=== PATIENT | female | born 1935 | race Caucasian/White ===

== ENCOUNTER 2022-09-18 15:51 | Outpatient (REF) | payer MEDICARE, OTHER, SELFPAY ==
--- NOTE | ~2022-09-18 | XR_ITS ---
EXAMINATION: XR ANKLE, RIGHT XR ANKLE, LEFT XR FOOT, RIGHT XR FOOT, LEFT CLINICAL INFORMATION: Rheumatoid arthritis, unspecified. COMPARISON: None. TECHNIQUE: AP, lateral, and mortise views of each ankle and AP, lateral, and oblique views of each foot. FINDINGS: RIGHT ANKLE: Soft tissues are swollen. No fracture or malalignment. Ankle mortise is symmetric. Joint space appears well preserved at the talocrural and subtalar joints. Small enthesopathic spurs are present at the Achilles tendon insertion and plantar fascial origin on the calcaneus. No joint effusion. No appreciable erosions. LEFT ANKLE: No fracture or malalignment. Bone mineralization is normal. Soft tissue swelling is present at the ankle. Ankle mortise is symmetric. Joint space appears well-preserved the talocrural and subtalar joints. No erosions. No joint effusion. Moderate sized enthesopathic spurs are present at the Achilles tendon insertion and plantar fascial origin on the calcaneus. 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 Bones are osteopenic. There is moderate nonuniform joint space narrowing at the 1st MTP joint with marginal osteophytes and articular cortical sclerosis, consistent with osteoarthritis. Additional moderate multifocal osteophytes is evident within the interphalangeal joints. Minimal osteophytes in the other MTP joints. Midfoot joints appear relatively well preserved. There is a 6 mm focus of calcification at the medial margin of the 1st metatarsal head which likely corresponds to hydroxyapatite deposition disease. A calcified tophus is less likely. No significant marginal or periarticular erosions are identified. 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 Moderate nonuniform cartilage loss is evident at the 1st MTP joint with articular sclerosis and marginal osteophytes. Additional moderate multifocal osteoarthritis is evident within the interphalangeal joints diffusely. Other MTP joints appear relatively well preserved as do the joints of the midfoot. No erosions are identified. Small foci of calcification are evident at the medial margin of the medial cuneiform and the medial margin of the 1st metatarsal head as can be seen with hydroxyapatite deposition disease. XR/XR ankle LT min 3V IMPRESSION: 1. No specific radiographic findings of rheumatoid arthritis in the ankles and feet. 2. Moderate multifocal osteoarthritis in the forefeet bilaterally, most notably at the 1st MTP joints. 3. 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 4. Small soft tissue calcifications at the 1st MTP joints and left 1st TMT joints are favored to correspond to hydroxyapatite deposition disease. Calcification of gouty tophi is less likely.
--- NOTE | ~2022-09-18 | XR_ITS ---
EXAMINATION: XR SHOULDER, RIGHT XR SHOULDER, LEFT CLINICAL INFORMATION: Rheumatoid arthritis, unspecified COMPARISON: None TECHNIQUE: AP external rotation, Grashey, scapular Y, and axillary views of each shoulder. FINDINGS: RIGHT SHOULDER: Marked nonuniform joint space narrowing is evident at the glenohumeral joint with articular sclerosis and large marginal osteophytes at the humeral head, most consistent with osteoarthritis. No fractures are identified. Multiple osseous loose bodies are evident in the axillary pouch and subacromial , measuring up to 1.2 cm in diameter. Mild to moderate acromioclavicular osteoarthritis. No fractures. Normal anatomic alignment. Probable 5 mm focus of chondrocalcinosis of the subscapularis tendon insertion on the lesser tuberosity and 5 mm focus at the pectoralis major insertion on the proximal humeral shaft. Soft tissues are otherwise unremarkable. LEFT SHOULDER: Marked glenohumeral joint space narrowing is associated with articular sclerosis and remodeling as well as large humeral osteophytes. A 8 mm loose body is present in the subacromial. Bones are osteopenic. Mild to moderate acromioclavicular osteoarthritis. Soft tissues are unremarkable. No acute fracture or malalignment. XR/XR shoulder LT min 2V IMPRESSION: 1. 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 2. Mild to moderate acromioclavicular osteoarthritis in both shoulders. 3. No acute osseous findings. 4. 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
--- NOTE | ~2022-09-18 | XR_ITS ---
EXAMINATION: XR SHOULDER, RIGHT XR SHOULDER, LEFT CLINICAL INFORMATION: Rheumatoid arthritis, unspecified COMPARISON: None TECHNIQUE: AP external rotation, Grashey, scapular Y, and axillary views of each shoulder. FINDINGS: RIGHT SHOULDER: Marked nonuniform joint space narrowing is evident at the glenohumeral joint with articular sclerosis and large marginal osteophytes at the humeral head, most consistent with osteoarthritis. No fractures are identified. Multiple osseous loose bodies are evident in the axillary pouch and subacromial , measuring up to 1.2 cm in diameter. Mild to moderate acromioclavicular osteoarthritis. No fractures. Normal anatomic alignment. Probable 5 mm focus of chondrocalcinosis of the subscapularis tendon insertion on the lesser tuberosity and 5 mm focus at the pectoralis major insertion on the proximal humeral shaft. Soft tissues are otherwise unremarkable. LEFT SHOULDER: Marked glenohumeral joint space narrowing is associated with articular sclerosis and remodeling as well as large humeral osteophytes. A 8 mm loose body is present in the subacromial. Bones are osteopenic. Mild to moderate acromioclavicular osteoarthritis. Soft tissues are unremarkable. No acute fracture or malalignment. XR/XR shoulder RT min 2V IMPRESSION: 1. 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 2. Mild to moderate acromioclavicular osteoarthritis in both shoulders. 3. No acute osseous findings. 4. 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
[2022-09-18 16:14] LABS: MANUAL DIFF FLAG NO
[2022-09-18 16:54] LABS: Basophils Percent Auto 0.5 % (0-2); Eosinophils Absolute Auto 0.2 X10*3/uL (0.0-0.4); Eosinophils Percent Auto 3.3 % (0-4); Hematocrit 33.4 % (37.0-47.0); Hemoglobin 10.7 g/dl (12.0-16.0); Imm Gran Abs Auto 0.01 X10*3/uL (0.00-0.03); Imm Gran Pct Auto 0.1 % (0.0-0.4); Lymphocytes Absolute Auto 2.2 X10*3/uL (1.2-4.9); Lymphocytes Percent Auto 30.3 % (20-40); Mean Corpuscular Hemoglobin 31.1 pg (27.0-33.0); Mean Corpuscular Volume 97.1 fL (80.0-98.0); Mean Platelet Volume 9.4 fL (9.4-12.3); Monocytes Absolute Auto 0.6 X10*3/uL (0.1-1.2); Monocytes Percent Auto 8.6 % (2-11); Neutrophils Absolute Auto 4.2 x10*3/uL (2.0-8.3); Neutrophils Percent Auto 57.2 % (45-73); Platelet Count 260 X10*3/uL (160-400); Red Blood Count 3.44 X10*6/uL (4.20-5.50); Red Cell Distribution Width 12.3 % (11.0-16.0); White Blood Count 7.4 X10*3/uL (4.8-10.8)
[2022-09-18 17:22] LABS: Alanine Aminotransferase 9 U/L (0-31); Albumin Level 4.2 g/dL (3.5-5.0); Alkaline Phosphatase 85 U/L (39-117); Anion Gap 15 (12-20); Aspartate Amino Transferase 16 U/L (5-31); Bilirubin Total 0.3 mg/dL (0.0-1.0); Blood Urea Nitrogen 32 mg/dL (9-16); C Reactive Protein 0.11 mg/dL (< or = 0.50); Calcium 9.3 mg/dL (8.4-10.2); Carbon Dioxide 29 mmol/L (22-29); Chloride 103 mmol/L (96-108); Estimated Glomerular Filt Rate 41; Glucose Random 93 mg/dL (60-115); Potassium 4.5 mmol/L (3.3-5.1); Rheumatoid Factor < 13.0 IU/mL (<15.0); Sodium 142 mmol/L (135-145); Total Protein 6.9 g/dL (6.5-8.0); Uric Acid 6.8 mg/dL (2.4-5.7)
[2022-09-18 18:11] LABS: Erythrocyte Sedimentation Rate 12 MM/HR (0-20)
[2022-09-19 07:33] LABS: HBS Num1 2.03 mIU/mL (0-7.99); HBc Num1 0.12 S/CO (0.00-0.79); HBsAGNum1 0.18 S/CO (0.00-0.99); Hepatitis A Antibody IgM 0.39 Index (0-0.79); Hepatitis B Core Antibody Nonreactive (Nonreactive); Hepatitis B Surface Antigen Negative (Negative); ~HepC Num1 0.11 S/CO (0.00-0.79); ~Hepatitis A Antibody IgM Nonreactive (Nonreactive); ~Hepatitis B Surface Antibody NONREACTIVE (Nonreactive); ~Hepatitis C Antibody Nonreactive (Nonreactive)
[2022-09-19 08:51] LABS: Complement C3 103 mg/dL
[2022-09-19 13:22] LABS: Prot Elec - Albumin 4.2 g/dL (3.8-4.8); Prot Elec - Alpha1 0.3 g/dL (0.2-0.3); Prot Elec - Alpha2 0.7 g/dL (0.5-0.9); Prot Elec - Beta 1 0.5 g/dL (0.4-0.6); Prot Elec - Beta 2 0.4 g/dL (0.2-0.5); Prot Elec - Total Protein 7.1 g/dL (6.1-8.1)
[2022-09-19 15:12] LABS: Cyclic Citrullinated Peptide 224 UNITS
[2022-09-19 20:57] LABS: Anti DNA DS Antibody 2 IU/mL; Antibody to SS-A Antigen <1.0 NEG AI (<1.0 NEG); Antibody to SS-B Antigen <1.0 NEG AI (<1.0 NEG); SM/Ribonucleoprotein Ab <1.0 NEG AI (<1.0 NEG); Smith Protein <1.0 NEG AI (<1.0 NEG)
[2022-09-20 12:56] LABS: TS Negative Control Passed; TS Panel A 0; TS Panel B 0; TS Positive Control Passed; TSpotTB Negative (Negative)
[2022-09-21 12:52] LABS: ANA Titer 2 1:40 titer; Anti Nuclear Antibody Pattern Nuclear, Homogeneous; Anti Nuclear Antibody Screen POSITIVE (NEGATIVE); Anti Nuclear Antibody Titer 1:40 titer
== END 2022-09-18 15:52 | disposition home or self-care (01) ==
LOC: HO.LAB 15:51
PROVIDERS: PCP Internal Medicine; Visit Provider Student in an Organized Health Care Education/Training Program
DX: Z11.59 Encounter for screening for other viral diseases (principal); Z11.7 Encounter for testing for latent tuberculosis infection; M06.9 Rheumatoid arthritis, unspecified; Z72.89 Other problems related to lifestyle
CPT/HCPCS: 36415; 73030; 73610; 73630; 80053; 84165; 84550; 85025; 85652; 86038; 86039; 86140; 86160; 86200; 86225; 86235; 86431; 86481; 86704; 86706; 86709; 86803; 87340; 99202

== ENCOUNTER → 2022-10-30 13:32 | Outpatient (BNVA) | payer MEDICARE, OTHER, SELFPAY | PROVIDERS: PCP Internal Medicine; Visit Provider Student in an Organized Health Care Education/Training Program | DX: M19.012 Primary osteoarthritis, left shoulder (principal); M19.011 Primary osteoarthritis, right shoulder | CPT/HCPCS: 20610; 99212 ==

== ENCOUNTER → 2023-01-02 14:43 | Outpatient (BNVA) | payer MEDICARE, OTHER, SELFPAY | PROVIDERS: PCP Internal Medicine; Visit Provider Student in an Organized Health Care Education/Training Program | DX: M06.9 Rheumatoid arthritis, unspecified (principal) | CPT/HCPCS: 20610; 99212 ==

== ENCOUNTER 2023-05-31 14:54 | Outpatient (AMB) | payer MEDICARE, OTHER, SELFPAY ==
[2023-05-31 14:56] VITALS: BP 116/66; PULSE 69; TEMP 36.2; O2SAT 96; BMI 25.7
--- NOTE | 2023-05-31 14:56 | A.OFFVIS_ITS ---
Intake Vital Signs 05/31/23 14:56 Height 5 ft 4 in Weight 149 lb 7.574 oz BMI 25.7 BP 116/66 Blood Pressure Location Rt brachial Position Sitting Pulse 69 Pulse Source Pulse Oximeter Temp 97.2 F Temp Source Skin Pulse Oximetry (%) 96 Intake Visit Reasons: Rheumatoid Arthritis Intake Note: Pt seen today for RA follow up. She reports she had a fall approx a month ago, due to dizziness seen at [facility], no broken bones lots of bruising Education Department Chair Required: No Accompanied by: Spouse Allergies lisinopril Allergy (Unknown, Verified 05/31/23 15:00) Unknown Medication List - Last Reconciled 05/31/23 by James Goldberg MD albuterol sulfate 90 mcg/actuation (ProAir HFA) 2 puffs inhalation Q6H PRN amlodipine 2.5 mg PO DAILY ascorbic acid (vitamin C) 1 g PO DAILY aspirin (Adult Low Dose Aspirin) 81 mg PO DAILY calcium carbonate-vitamin D3 600 mg-10 mcg (400 unit) (Calcium 600 + D(3)) 1 tab PO DAILY carvedilol (Coreg) 6.25 mg PO BID clopidogrel (Plavix) 75 mg PO DAILY ferrous sulfate 324 mg PO DAILY fluticasone propion-salmeterol 500-50 mcg/dose (Advair Diskus) 1 inh inhalation BID folic acid 1 mg PO DAILY furosemide 20 mg PO DAILY methotrexate sodium 15 mg (6 x 2.5 mg) PO QWEEK omega 8-nym-fkg-fish oil 1,000 mg (120 mg-180 mg) (Fish Oil) 1 cap PO DAILY simvastatin 20 mg PO DAILY wheat dextrin (Best Fiber) 1.5 grams PO BID HPI HPI Comments History of Present Illness Details 87-year-old female with seropositive RA/oa returns for follow-up. Patient states that the steroid injection for her left shoulder helped her and she has improved range of motion, the steroid injection for her right shoulder did not provide much relief. Patient had a mechanical fall about a month ago and had bruising in both knees. She was evaluated and [facility] and there were no broken bones. Initial history This is an 87-year-old female with past medical history of hypertension, dyslipidemia, COPD who presents for evaluation of arthritis. Patient stated she was diagnosed with rheumatoid arthritis by Dr. New more than 20 years ago and was on methotrexate for 1-2 years. She stated that her overall stiffness was better when she was on methotrexate. She had been off methotrexate for about 20 years. Her main complaint is bilateral shoulder stiffness rather than pain. The stiffness lasts all day. She has difficulty elevating her shoulders above her head. Her has to help her with activities of daily living. She states that her shoulders crack when she moves them. She she has swelling of her entire legs bilaterally. Compression stockings were suggested by her PCP with some improvement. [facility] Medical History Arrhythmia COPD (chronic obstructive pulmonary disease) Hypercholesteremia Hypertension Rheumatoid arthritis Surgical History H/O cystoscopy History of laparoscopic cholecystectomy Hx of appendectomy Family History Father Gout Hypertension CVA (cerebral vascular accident) Kidney disease Mother Heart disease Social History Household Members: Spouse Housing Other:: mobile home Alcohol intake: never Patient Tobacco Use Status: Former Tobacco user Years Smoked: quit 30- 40 years ago service: No Current occupational status: retired Current occupation: worked in [employer] [facility] [place] Reports arthralgias and Reports stiffness Physical Exam Vital Signs: Last Vital Signs Temp 97.2 F 05/31/23 14:56 Pulse 69 05/31/23 14:56 BP 116/66 05/31/23 14:56 Pulse Ox 96 05/31/23 14:56 BMI result Body Mass Index 25.7 Const General: cooperative, healthy appearing and comfortable Nutritional Appearance: average body habitus Limitations: ambulation with walker HEENT Head: Yes normocephalic and Yes atraumatic Mouth: Normal oral and palatal mucosa present and moist mucous membranes Resp Effort & Inspection: normal respiratory effort and able to speak in complete sentences Auscultation: clear to auscultation bilaterally Cardio Rate: regular rate Rhythm: regular rhythm Extrem Other: Improved range of motion of left shoulder but still remains limited. Significantly reduced range of motion of right shoulder. Bilateral shoulder crepitus with movement. Osteoarthritic changes of her hands with no synovitis Bilateral knee swelling worse on the right with some warmth. Bilateral knee pain with full flexion. Patient cannot fully extend her right knee when walking Bilateral ankle swelling without warmth or tenderness Left medial malleolus tenderness to palpation Some tenderness to palpation of her MTPs bilaterally Normal nailfold capillaroscopy Assessment & Plan Assessment & Plan (1) Rheumatoid arthritis: Comment: -ve RF +++CCP dx around 2009 & was on MTX, then lost to f/u & DC MTX MTX 05/26 Code(s): M06.9 - Rheumatoid arthritis, unspecified Plan: This is an 87-year-old female with seropositive RA who returns for follow-up. Will need to start DMARDs. I discussed methotrexate versus hydroxychloroquine. Patient states that she was on methotrexate before and did fairly well with it. Will start methotrexate 15 mg once weekly and folic acid 1 mg daily Blood work before next visit in 2 months Infectious screening: Hepatitis panel and T spot -ve 2021 (2) Screening for osteoporosis: Code(s): Z13.820 - Encounter for screening for osteoporosis Plan: Due to old age, history of RA and history of recent fall, will check a bone den sity scan Plan I spent 27 minutes reviewing patient's chart, evaluating patient, ordering diagnostic workup, counseling patient and documenting in the chart Orders: Orders Comprehensive Met. Panel 2 Months M06.9 - Rheumatoid arthritis, unspecified C Reactive Protein 2 Months M06.9 - Rheumatoid arthritis, unspecified Complete Blood Count Auto Diff 2 Months M06.9 - Rheumatoid arthritis, unspecified Erythrocyte Sedimentation Rate 2 Months M06.9 - Rheumatoid arthritis, unspecified XR DEXA axial skeleton Today N95.1 - Menopausal and female climacteric states Medications: New methotrexate sodium 15 mg (6 x 2.5 mg) PO QWEEK 48 tabs 0RF folic acid 1 mg PO DAILY 90 tabs 1RF Coding Level of Care Code Est Pt Level 4 (57145) Diagnoses Rheumatoid arthritis M06.9 Screening for osteoporosis Z13.820
== END 2023-05-31 15:35 | disposition home or self-care (01) ==
PROVIDERS: PCP Internal Medicine; Visit Provider Student in an Organized Health Care Education/Training Program
DX: M06.9 Rheumatoid arthritis, unspecified (principal); Z13.820 Encounter for screening for osteoporosis
CPT/HCPCS: 99214

== ENCOUNTER → 2023-05-31 14:54 | Outpatient (BNVA) | payer MEDICARE, OTHER, SELFPAY | PROVIDERS: PCP Internal Medicine; Visit Provider Student in an Organized Health Care Education/Training Program | DX: Z13.820 Encounter for screening for osteoporosis (principal); M06.9 Rheumatoid arthritis, unspecified | CPT/HCPCS: 99212 ==

== ENCOUNTER 2023-07-10 12:30 | Outpatient (REF) | payer MEDICARE, OTHER, SELFPAY ==
--- NOTE | ~2023-07-10 | MM_ITS ---
EXAMINATION: BONE DENSITOMETRY CLINICAL INDICATION: Menopausal and female climacteric states. COMPARISON: Previous BD dated 11/15/2006 and baseline BD dated 10/06/2004, spine, 11/15/2006, left hip. TECHNIQUE: Using a [employer] DXA System (software version: 13.1) manufactured by [employer], dual-energy x-ray absorptiometry was performed of the lumbar spine and left hip. The images are of good technical quality. Summary results are attached. FINDINGS: LEFT FEMUR, NECK: Current: BMD 0.943 g/cm2, Z-score 1.7, T-score -0.7, normal. Baseline: BMD 1.088 g/cm2. LEFT FEMUR, TOTAL: Current: BMD 0.982 g/cm2, Z-score 2.1, T-score -0.2, normal, 16.4% decrease from baseline (<5% change is not significant). Baseline: BMD 1.174 g/cm2. AP SPINE L1-L4: Current: BMD 1.602 g/cm2, Z-score 5.4, T-score 3.5, normal, 6.6% increase from previous, 8.2% increase from baseline (<5% change is not significant). Prior: BMD 1.503 g/cm2. Baseline: BMD 1.480 g/cm2. IDENTIFIED RISK FACTORS: Menopause, height loss, recurrent falls, rheumatoid arthritis. HISTORY OF FRACTURE: None listed. MEDICATIONS: Calcium supplements or multivitamin, vitamin D. MM/XR DEXA axial skeleton IMPRESSION: 1. DIAGNOSIS: Normal bone density based on the lowest T-score value of -0.7 in the femoral neck applying World Health Organization criteria. 2. 10-YEAR FRACTURE RISK PREDICTION, FRAX: According to the guidelines, FRAX calculation should only be performed on patients in the osteopenia bone density category. Therefore, FRAX was not performed on this patient. 3. Treatment Recommendations: NOF guidelines recommend consideration for treatment in postmenopausal women and men age 50 and older presenting with the following: -A hip or vertebral (clinical or morphometric) fracture. -T-score less than or equal to -2.5 at the femoral neck or spine after appropriate evaluation to exclude secondary causes. -Low bone mass at the hip or spine and a 10-year fracture probability by FRAX of greater than or equal to 3% for hip fracture or greater than or equal to 20% for major osteoporotic fracture based on the [place] adapted WHO algorithm. 4. Other Recommendations: All treatment decisions require clinical judgment and consideration of individual patient factors, including patient preferences, comorbidities, previous drug use, risk factors not captured in the FRAX model (e.g. frailty, falls, vitamin D deficiency, increased bone turnover, interval significant decline in bone density) and possible under or overestimation of fracture risk by FRAX. FUTURE SCAN RECOMMENDATION: People with diagnosed cases of osteoporosis or at high risk for fracture should have regular bone mineral density tests. For patients eligible for Medicare, routine testing is allowed once every 2 years. The testing frequency can be increased to one year for patients who have rapidly progressing disease, those who are receiving or discontinuing medical therapy to restore bone mass, or have additional risk factors.
[2023-07-10 13:39] LABS: Basophils Percent Auto 0.3 % (0-2); Eosinophils Absolute Auto 0.1 X10*3/uL (0.0-0.4); Eosinophils Percent Auto 2.1 % (0-4); Hemoglobin 9.7 g/dl (12.0-16.0); Imm Gran Abs Auto 0.02 X10*3/uL (0.00-0.03); Imm Gran Pct Auto 0.3 % (0.0-0.4); Lymphocytes Absolute Auto 1.5 X10*3/uL (1.2-4.9); Lymphocytes Percent Auto 22.8 % (20-40); MANUAL DIFF FLAG NO; Mean Corpuscular HGB Conc 32.3 g/dl (31.0-35.0); Mean Corpuscular Hemoglobin 30.9 pg (27.0-33.0); Mean Corpuscular Volume 95.5 fL (80.0-98.0); Mean Platelet Volume 9.1 fL (9.4-12.3); Monocytes Absolute Auto 0.5 X10*3/uL (0.1-1.2); Monocytes Percent Auto 7.2 % (2-11); Neutrophils Absolute Auto 4.5 x10*3/uL (2.0-8.3); Neutrophils Percent Auto 67.3 % (45-73); Platelet Count 250 X10*3/uL (160-400); Red Blood Count 3.14 X10*6/uL (4.20-5.50); Red Cell Distribution Width 13.8 % (11.0-16.0); White Blood Count 6.6 X10*3/uL (4.8-10.8)
[2023-07-10 14:12] LABS: Alanine Aminotransferase 17 U/L (0-31); Albumin Level 3.7 g/dL (3.5-5.0); Alkaline Phosphatase 93 U/L (39-117); Anion Gap 14 (12-20); Aspartate Amino Transferase 19 U/L (5-31); Bilirubin Total 0.4 mg/dL (0.0-1.0); Blood Urea Nitrogen 21 mg/dL (9-16); C Reactive Protein 0.41 mg/dL (< or = 0.50); Calcium 9.1 mg/dL (8.4-10.2); Carbon Dioxide 28 mmol/L (22-29); Chloride 102 mmol/L (96-108); Estimated Glomerular Filt Rate 45; Glucose Random 88 mg/dL (60-115); Potassium 4.9 mmol/L (3.3-5.1); Sodium 139 mmol/L (135-145); Total Protein 6.5 g/dL (6.5-8.0)
[2023-07-10 14:18] LABS: Erythrocyte Sedimentation Rate 25 MM/HR (0-20)
== END 2023-07-10 12:31 | disposition home or self-care (01) ==
LOC: HO.MAMMO 12:30
PROVIDERS: PCP Internal Medicine; Visit Provider Student in an Organized Health Care Education/Training Program
DX: Z13.820 Encounter for screening for osteoporosis (principal); M06.9 Rheumatoid arthritis, unspecified; Z78.0 Asymptomatic menopausal state
CPT/HCPCS: 36415; 77080; 80053; 85025; 85652; 86140

== ENCOUNTER → 2023-07-10 13:04 | Outpatient (BNV) | payer MEDICARE, OTHER, SELFPAY | PROVIDERS: PCP Internal Medicine; Visit Provider Radiology Diagnostic Radiology | DX: N95.1 Menopausal and female climacteric states (principal) | CPT/HCPCS: 77080 ==

== ENCOUNTER 2023-07-17 13:18 | Outpatient (AMB) | payer MEDICARE, OTHER, SELFPAY ==
[2023-07-17 13:24] VITALS: BP 108/62; PULSE 66; TEMP 36.3; O2SAT 96; BMI 25.8
--- NOTE | 2023-07-17 13:24 | A.OFFVIS_ITS ---
Intake Vital Signs 07/17/23 13:24 Height 5 ft 4 in Weight 150 lb 5.684 oz BMI 25.8 BP 108/62 Blood Pressure Location Lt brachial Position Sitting Pulse 66 Pulse Source Pulse Oximeter Temp 97.3 F Temp Source Skin Pulse Oximetry (%) 96 Intake Visit Reasons: RA Intake Note: Pt seen today for RA follow up. Reports couple episodes of passing out due to dehydration and is now drinking more water. She does stretches and exercises taught by her daughter in law who is a retired physical therapist. She states she feels good Clinical Trial Associate Required: No Accompanied by: Daughter Allergies lisinopril Allergy (Unknown, Verified 07/17/23 13:32) Unknown HPI HPI Comments History of Present Illness Details 87-year-old female with seropositive RA/ oa returns for follow-up. On methotrexate 15 mg once weekly for the last 2 months. Patient states that she feels about the same overall. Denies any side effects related to methotrexate. Continues to do stretching exercises taught by her [id number] who is a retired physical therapist. She had a fall 3 times over the last few months . She believes it is due to dehydration due to not drinking enough water. She is being evaluated by multiple specialists Initial history This is an 87-year-old female with past medical history of hypertension, dyslipidemia, COPD who presents for evaluation of arthritis. Patient stated she was diagnosed with rheumatoid arthritis by Dr. New more than 20 years ago and was on methotrexate for 1-2 years. She stated that her overall stiffness was better when she was on methotrexate. She had been off methotrexate for about 20 years. Her main complaint is bilateral shoulder stiffness rather than pain. The stiffness lasts all day. She has difficulty elevating her shoulders above her head. Her has to help her with activities of daily living. She states that her shoulders crack when she moves them. She she has swelling of her entire legs bilaterally. Compression stockings were suggested by her PCP with some improvement. [facility] Medical History (Updated 07/17/23 @ 14:22 by James Goldberg MD) Iron deficiency COPD (chronic obstructive pulmonary disease) Rheumatoid arthritis Hypercholesteremia Arrhythmia Hypertension Surgical History H/O cystoscopy History of laparoscopic cholecystectomy Hx of appendectomy Family History Father Gout Hypertension CVA (cerebral vascular accident) Kidney disease Mother Heart disease Social History Household Members: Spouse Housing Other:: mobile home Alcohol intake: never Patient Tobacco Use Status: Former Tobacco user Years Smoked: quit 30- 40 years ago service: No Current occupational status: retired Current occupation: worked in [employer] [facility] [place] Reports arthralgias and Reports stiffness Physical Exam Vital Signs: Last Vital Signs Temp 97.3 F 07/17/23 13:24 Pulse 66 07/17/23 13:24 BP 108/62 07/17/23 13:24 Pulse Ox 96 07/17/23 13:24 BMI result Body Mass Index 25.8 Const General: cooperative, healthy appearing and comfortable Nutritional Appearance: average body habitus Limitations: ambulation with walker HEENT Head: Yes normocephalic and Yes atraumatic Mouth: Normal oral and palatal mucosa present and moist mucous membranes Resp Effort & Inspection: normal respiratory effort and able to speak in complete sentences Auscultation: diminished lung sounds bilateral in the lower lung [place] Cardio Rate: regular rate Rhythm: regular rhythm Skin General skin exam: no rashes or lesions noted Extrem Other: Limited range of motion of both shoulders Bilateral shoulder crepitus with movement. Osteoarthritic changes of her hands with no synovitis Minimal knee swelling, very mild right knee warmth Bilateral knee pain with full flexion. No right knee pain with full extension Bilateral ankle swelling without warmth or tenderness No ankle tenderness to palpation today No MTP tenderness today Normal nailfold capillaroscopy Assessment & Plan Assessment & Plan (1) Rheumatoid arthritis: Comment: -ve RF +++CCP dx around 2009 & was on MTX, then lost to f/u & DC MTX MTX 05/26 Code(s): M06.9 - Rheumatoid arthritis, unspecified Qualifiers: Rheumatoid arthritis location: multiple sites Rheumatoid factor presence: without rheumatoid factor Qualified Code(s): M06.09 - Rheumatoid arthritis without rheumatoid factor, multiple sites Plan: This is an 87-year-old female with seropositive RA who returns for follow-up. On methotrexate 15 mg once weekly plus folic acid 1 mg daily. There is some improvement today on methotrexate. Increase methotrexate to 20 mg once weekly split dose. Continue folic acid 1 mg daily Blood work before next visit in 3 months Infectious screening: Hepatitis panel and T spot -ve 2021 (2) Screening for osteoporosis: Code(s): Z13.820 - Encounter for screening for osteoporosis Plan: DEXA scan was done. report pending (3) Anemia: Code(s): D64.9 - Anemia, unspecified Qualifiers: Anemia type: unspecified type Qualified Code(s): D64.9 - Anemia, unspecified Plan: Normocytic. Will check nutritional deficiencies. Advised patient to follow-up with her PCP Plan I spent 27 minutes reviewing patient's chart, evaluating patient, ordering diagnostic workup, counseling patient and documenting in the chart Orders: Orders Comprehensive Met. Panel 3 Months M06.9 - Rheumatoid arthritis, unspecified C Reactive Protein 3 Months M06.9 - Rheumatoid arthritis, unspecified Erythrocyte Sedimentation Rate 3 Months M06.9 - Rheumatoid arthritis, unspecified Ferritin 3 Months E61.1 - Iron deficiency Vitamin B12 and Folate 3 Months D64.9 - Anemia, unspecified Complete Blood Count Auto Diff 3 Months M06.9 - Rheumatoid arthritis, unspecified Transferrin 3 Months E61.1 - Iron deficiency IRON PROFILE 3 Months E61.1 - Iron deficiency Medications: Changed From methotrexate sodium 15 mg (6 x 2.5 mg) PO QWEEK 48 tabs 0RF To methotrexate sodium 20 mg (8 x 2.5 mg) PO QWEEK 96 tabs 0RF Coding Level of Care Code Est Pt Level 4 (86176) Diagnoses Rheumatoid arthritis of multiple sites with negative rheumatoid factor M06.09 Rheumatoid arthritis location: multiple sites Rheumatoid factor presence: without rheumatoid factor Screening for osteoporosis Z13.820 Anemia, unspecified type D64.9 Anemia type: unspecified type
== END 2023-07-17 14:13 | disposition home or self-care (01) ==
PROVIDERS: PCP Internal Medicine; Visit Provider Student in an Organized Health Care Education/Training Program
DX: M06.09 Rheumatoid arthritis without rheumatoid factor, multiple sites (principal); Z13.820 Encounter for screening for osteoporosis; D64.9 Anemia, unspecified
CPT/HCPCS: 99214

== ENCOUNTER → 2023-07-17 13:18 | Outpatient (BNVA) | payer MEDICARE, OTHER, SELFPAY | PROVIDERS: PCP Internal Medicine; Visit Provider Student in an Organized Health Care Education/Training Program | DX: Z13.820 Encounter for screening for osteoporosis (principal); M06.09 Rheumatoid arthritis without rheumatoid factor, multiple sites; D64.9 Anemia, unspecified | CPT/HCPCS: 99212 ==

== ENCOUNTER 2023-10-10 13:13 | Outpatient (REF) | payer MEDICARE, OTHER, SELFPAY ==
[2023-10-10 13:31] LABS: MANUAL DIFF FLAG NO
[2023-10-10 14:16] LABS: Basophils Percent Auto 0.3 % (0-2); Eosinophils Absolute Auto 0.2 X10*3/uL (0.0-0.4); Eosinophils Percent Auto 2.8 % (0-4); Hematocrit 31.4 % (37.0-47.0); Hemoglobin 9.9 g/dl (12.0-16.0); Imm Gran Abs Auto 0.02 X10*3/uL (0.00-0.03); Imm Gran Pct Auto 0.3 % (0.0-0.4); Lymphocytes Absolute Auto 1.5 X10*3/uL (1.2-4.9); Lymphocytes Percent Auto 24.9 % (20-40); Mean Corpuscular HGB Conc 31.5 g/dl (31.0-35.0); Mean Corpuscular Volume 101.6 fL (80.0-98.0); Mean Platelet Volume 9.2 fL (9.4-12.3); Monocytes Absolute Auto 0.5 X10*3/uL (0.1-1.2); Monocytes Percent Auto 7.5 % (2-11); Neutrophils Absolute Auto 3.9 x10*3/uL (2.0-8.3); Neutrophils Percent Auto 64.2 % (45-73); Platelet Count 233 X10*3/uL (160-400); Red Blood Count 3.09 X10*6/uL (4.20-5.50); Red Cell Distribution Width 13.7 % (11.0-16.0)
[2023-10-10 14:48] LABS: Alanine Aminotransferase 12 U/L (0-31); Albumin Level 3.8 g/dL (3.5-5.0); Alkaline Phosphatase 90 U/L (39-117); Anion Gap 12 (12-20); Aspartate Amino Transferase 17 U/L (5-31); Bilirubin Total 0.3 mg/dL (0.0-1.0); Blood Urea Nitrogen 27 mg/dL (9-16); C Reactive Protein 0.67 mg/dL (< or = 0.50); Carbon Dioxide 29 mmol/L (22-29); Chloride 103 mmol/L (96-108); Estimated Glomerular Filt Rate 43; Glucose Random 100 mg/dL (60-115); Iron 34 mcg/dL (30-160); Percent Iron Saturation 14 % (15-50); Potassium 4.2 mmol/L (3.3-5.1); Sodium 140 mmol/L (135-145); Total Iron Binding Capacity 235 mcg/dL (228-428); Total Protein 6.8 g/dL (6.5-8.0); Unsaturated Iron Binding 201 ug/dL
[2023-10-10 14:53] LABS: Erythrocyte Sedimentation Rate 24 MM/HR (0-20)
[2023-10-10 15:03] LABS: Ferritin 180 ng/mL (10-250)
[2023-10-10 15:15] LABS: Folate > 20.0 ng/mL (> or = 4.0); Vitamin B12 421 pg/mL (200-900)
[2023-10-14 13:38] LABS: Transferrin 212 mg/dL (188-341)
== END 2023-10-10 13:14 | disposition home or self-care (01) ==
LOC: HO.LAB 13:13
PROVIDERS: PCP Internal Medicine; Visit Provider Student in an Organized Health Care Education/Training Program
DX: M06.9 Rheumatoid arthritis, unspecified (principal); E61.1 Iron deficiency
CPT/HCPCS: 36415; 80053; 82607; 82728; 82746; 83540; 84466; 85025; 85652; 86140

== ENCOUNTER 2023-10-17 13:56 | Outpatient (AMB) | payer MEDICARE, OTHER, SELFPAY ==
--- NOTE | 2023-10-17 13:59 | A.OFFVIS_ITS ---
Intake Vital Signs 10/17/23 14:05 Height 5 ft 4 in Weight 141 lb 12.116 oz BMI 24.3 BP 130/82 Blood Pressure Location Rt brachial Position Sitting Pulse 77 Pulse Source Pulse Oximeter Temp 97 F Temp Source Skin Pulse Oximetry (%) 95 Oxygen Delivery Method Room Air Intake Visit Reasons: RA Intake Note: Patient last seen 07/17/23, presents today for follow up and test results. 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 Accompanied by: Daughter Allergies lisinopril Allergy (Unknown, Verified 10/17/23 14:06) Unknown Medication List - Last Reconciled 10/17/23 by James Goldberg MD albuterol sulfate 90 mcg/actuation (ProAir HFA) 2 puffs inhalation Q6H PRN ascorbic acid (vitamin C) 1 g PO DAILY aspirin (Adult Low Dose Aspirin) 81 mg PO DAILY calcium carbonate-vitamin D3 600 mg-10 mcg (400 unit) (Calcium 600 + D(3)) 1 tab PO DAILY clopidogrel (Plavix) 75 mg PO DAILY ferrous sulfate 324 mg PO DAILY fluticasone propion-salmeterol 500-50 mcg/dose (Advair Diskus) 1 inh inhalation BID folic acid 1 mg PO DAILY furosemide 20 mg PO DAILY methotrexate sodium 20 mg (8 x 2.5 mg) PO QWEEK omega 3-ynd-snr-fish oil 1,000 mg (120 mg-180 mg) (Fish Oil) 1 cap PO DAILY simvastatin 20 mg PO DAILY wheat dextrin (Best Fiber) 1.5 grams PO BID HPI HPI Comments History of Present Illness Details 88-year-old female with seropositive RA/ OA returns for follow-up. On methotrexate 20 mg once weekly. Patient states that she feels about the same overall. She feels well. Denies any side effects related to methotrexate. She has not had a fall since last visit. Initial history This is an 87-year-old female with past medical history of hypertension, dyslipidemia, COPD who presents for evaluation of arthritis. Patient stated she was diagnosed with rheumatoid arthritis by Dr. New more than 20 years ago and was on methotrexate for 1-2 years. She stated that her overall stiffness was better when she was on methotrexate. She had been off methotrexate for about 20 years. Her main complaint is bilateral shoulder stiffness rather than pain. The stiffness lasts all day. She has difficulty elevating her shoulders above her head. Her has to help her with activities of daily living. She states that her shoulders crack when she moves them. She she has swelling of her entire legs bilaterally. Compression s tockings were suggested by her PCP with some improvement. [facility] Medical History (Updated 10/17/23 @ 14:22 by James Goldberg MD) Anemia COPD (chronic obstructive pulmonary disease) Rheumatoid arthritis Hypercholesteremia Arrhythmia Hypertension Surgical History H/O cystoscopy History of laparoscopic cholecystectomy Hx of appendectomy Family History Father Gout Hypertension CVA (cerebral vascular accident) Kidney disease Mother Heart disease Social History Household Members: Spouse Housing Other:: mobile home Alcohol intake: never Patient Tobacco Use Status: Former Tobacco user Years Smoked: quit 30- 40 years ago service: No Current occupational status: retired Current occupation: worked in [employer] Review of Systems [facility] [place] Reports limited range of motion Physical Exam Vital Signs: Last Vital Signs Temp 97 F 10/17/23 14:05 Pulse 77 10/17/23 14:05 BP 130/82 10/17/23 14:05 Pulse Ox 95 10/17/23 14:05 Oxygen Delivery Method Room Air 10/17/23 14:05 BMI result Body Mass Index 24.3 Const General: cooperative, healthy appearing and comfortable Nutritional Appearance: average body habitus Limitations: ambulation with walker HEENT Head: Yes normocephalic and Yes atraumatic Mouth: Normal oral and palatal mucosa present and moist mucous membranes Resp Effort & Inspection: normal respiratory effort and able to speak in complete sentences Cardio Rate: regular rate Rhythm: regular rhythm Skin General skin exam: no rashes or lesions noted Extrem Other: Limited range of motion of both shoulders Bilateral shoulder crepitus with movement. Osteoarthritic changes of her hands with no synovitis No knee warmth Normal range of motion of both knees without pain Mild right medial ankle tenderness No ankle tenderness to palpation today No MTP tenderness today Normal nailfold capillaroscopy Assessment & Plan Assessment & Plan (1) Rheumatoid arthritis: Comment: -ve RF +++CCP dx around 2009 & was on MTX, then lost to f/u & DC MTX MTX 05/26 Code(s): M06.9 - Rheumatoid arthritis, unspecified Qualifiers: Rheumatoid arthritis location: multiple sites Rheumatoid factor presence: without rheumatoid factor Qualified Code(s): M06.09 - Rheumatoid arthritis without rheumatoid factor, multiple sites Plan: This is an 88-year-old female with seropositive RA who returns for follow-up. On methotrexate 20 mg once weekly plus folic acid 1 mg daily. Doing well Continue methotrexate 20 mg weekly. Labs showed mild macrocytosis. Increase folic acid to 3 mg daily Blood work before next visit in 3 months Infectious screening: Hepatitis panel and T spot -ve 2021 (2) Screening for osteoporosis: Code(s): Z13.820 - Encounter for screening for osteoporosis Plan: DEXA 07/2023. 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 Panel 3 Months M06.9 - Rheumatoid arthritis, unspecified C Reactive Protein 3 Months M06.9 - Rheumatoid arthritis, unspecified Erythrocyte Sedimentation Rate 3 Months M06.9 - Rheumatoid arthritis, unspecifi ed Medications: Changed From folic acid 1 mg PO DAILY 90 tabs 1RF To folic acid 3 mg (3 x 1 mg) PO DAILY 270 tabs 1RF Coding Level of Care Code Est Pt Level 4 (20191) Diagnoses Rheumatoid arthritis of multiple sites with negative rheumatoid factor M06.09 Rheumatoid arthritis location: multiple sites Rheumatoid factor presence: without rheumatoid factor Screening for osteoporosis Z13.820 chief technician 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
[2023-10-17 14:05] VITALS: BP 130/82; PULSE 77; TEMP 36.1; O2SAT 95; BMI 24.3
== END 2023-10-17 14:22 | disposition home or self-care (01) ==
PROVIDERS: PCP Internal Medicine; Visit Provider Student in an Organized Health Care Education/Training Program
DX: M06.09 Rheumatoid arthritis without rheumatoid factor, multiple sites (principal); Z13.820 Encounter for screening for osteoporosis; Z79.631 Long term (current) use of antimetabolite agent; Z71.85 Encounter for immunization safety counseling
CPT/HCPCS: 99214

== ENCOUNTER → 2023-10-17 13:56 | Outpatient (BNVA) | payer MEDICARE, OTHER, SELFPAY | PROVIDERS: PCP Internal Medicine; Visit Provider Student in an Organized Health Care Education/Training Program | DX: M06.09 Rheumatoid arthritis without rheumatoid factor, multiple sites (principal); Z13.820 Encounter for screening for osteoporosis; Z71.85 Encounter for immunization safety counseling; Z79.631 Long term (current) use of antimetabolite agent | CPT/HCPCS: 99212 ==

== ENCOUNTER 2024-01-16 13:49 | Outpatient (AMB) | payer MEDICARE, OTHER, SELFPAY ==
--- NOTE | 2024-01-16 13:59 | MHC.OFFVIS ---
Intake Vital Signs 01/16/24 14:00 Height 5 ft 4 in Weight 146 lb 9.718 oz BMI 25.2 BP 160/82 H Blood Pressure Location Rt brachial Position Sitting Pulse 75 Pulse Source Pulse Oximeter Pulse Oximetry (%) 96 Oxygen Delivery Method Room Air Intake Visit Reasons: RA Intake Note: Patient last seen 10/17/23 presents today for follow up and test results. She did not do labs she had issues wit BRL since switching to [facility]. Lab slips printed and given to pt's daughter Guerda. 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 Accompanied by: Daughter Guerda Allergies lisinopril Allergy (Unknown, Verified 01/16/24 14:16) Unknown Medication List - Last Reconciled 01/16/24 by James Goldberg MD albuterol sulfate 90 mcg/actuation (ProAir HFA) 2 puffs inhalation Q6H PRN ascorbic acid (vitamin C) 1 g PO DAILY aspirin (Adult Low Dose Aspirin) 81 mg PO DAILY calcium carbonate-vitamin D3 600 mg-10 mcg (400 unit) (Calcium 600 + D(3)) 1 tab PO DAILY clopidogrel (Plavix) 75 mg PO DAILY ferrous sulfate 325 mg PO BID fludrocortisone 0.1 mg PO DAILY fluticasone furoate-vilanterol 100-25 mcg/dose (Breo Ellipta) 1 ea inhalation DAILY fluticasone propion-salmeterol 500-50 mcg/dose (Advair Diskus) 1 inh inhalation BID folic acid 1 mg PO DAILY furosemide 20 mg PO DAILY methotrexate sodium 20 mg (8 x 2.5 mg) PO QWEEK midodrine 10 mg PO DAILY omega 4-xtu-ezr-fish oil 1,000 mg (120 mg-180 mg) (Fish Oil) 1 cap PO DAILY simvastatin 40 mg PO DAILY wheat dextrin (Best Fiber) 1.5 grams PO BID HPI HPI Comments History of Present Illness Details 88-year-old female with seropositive RA/OA returns for follow-up. On methotrexate 20 mg once weekly. Around new year's, patient had a fall and had a broken nose, she was then sent to rehab and had pneumonia while in rehab. 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 Patient's level of functionality has declined somewhat, she now does not go out without a wheelchair. She uses a walker at home. She is doing home PT. Initial history This is an 87-year-old female with past medical history of hypertension, dyslipidemia, COPD who presents for evaluation of arthritis. Patient stated she was diagnosed with rheumatoid arthritis by Dr. New more than 20 years ago and was on methotrexate for 1-2 years. She stated that her overall stiffness was better when she was on methotrexate. She had been off methotrexate for about 20 years. Her main complaint is bilateral shoulder stiffness rather than pain. The stiffness lasts all day. She has difficulty elevating her shoulders above her head. Her has to help her with activities of daily living. She states that her shoulders crack when she moves them. She she has swelling of her entire legs bilaterally. Compression stockings were suggested by her PCP with some improvement. [facility] Medical History Anemia COPD (chronic obstructive pulmonary disease) Rheumatoid arthritis Hypercholesteremia Arrhythmia Hypertension Surgical History H/O cystoscopy History of laparoscopic cholecystectomy Hx of appendectomy Family History Father Gout Hypertension CVA (cerebral vascular accident) Kidney disease Mother Heart disease Social History Household Members: Spouse Housing Other:: mobile home Alcohol intake: never Patient Tobacco Use Status: Former Tobacco user Years Smoked: quit 30- 40 years ago service: No Current occupational status: retired Current occupation: worked in [employer] Review of Systems Const Reports weakness Musc Reports limited range of motion Neuro Reports weakness Physical Exam Vital Signs: Last Vital Signs Pulse 75 01/16/24 14:00 BP 160/82 H 01/16/24 14:00 Pulse Ox 96 01/16/24 14:00 Oxygen Delivery Method Room Air 01/16/24 14:00 BMI result Body Mass Index 25.2 Const General: cooperative, healthy appearing and comfortable Nutritional Appearance: average body habitus Limitations: wheelchair HEENT Head: Yes normocephalic and Yes atraumatic Mouth: Normal oral and palatal mucosa present and moist mucous membranes Resp Effort & Inspection: normal respiratory effort and able to speak in complete sentences Auscultation: clear to auscultation bilaterally Cardio Rate: regular rate Rhythm: regular rhythm Skin General skin exam: no rashes or lesions noted Extrem Other: Limited range of motion of both shoulders Bilateral shoulder crepitus with movement. Osteoarthritic changes of her hands with no synovitis Mild right knee warmth Normal range of motion of both knees without pain No ankle tenderness to palpation today No MTP tenderness today Normal nailfold capillaroscopy Assessment & Plan Assessment & Plan (1) Rheumatoid arthritis: Comment: -ve RF +++CCP dx around 2009 & was on MTX, then lost to f/u & DC MTX MTX 05/26 Code(s): M06.9 - Rheumatoid arthritis, unspecified Qualifiers: Rheumatoid arthritis location: multiple sites Rheumatoid factor presence: without rheumatoid factor Qualified Code(s): M06.09 - Rheumatoid arthritis without rheumatoid factor, multiple sites Plan: This is an 88-year-old female with seropositive RA who returns for follow-up. On methotrexate 20 mg once weekly plus folic acid 1 mg daily. Doing well Continue methotrexate 20 mg weekly. Continue folic acid 3 mg daily Blood work before next visit in 4 months Infectious screening: Hepatitis panel and T spot -ve 2021 (2) Screening for osteoporosis: Code(s): Z13.820 - Encounter for screening for osteoporosis Plan: DEXA 07/2023. 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
[2024-01-16 14:00] VITALS: BP 160/82; PULSE 75; O2SAT 96; BMI 25.2
== END 2024-01-16 14:48 | disposition home or self-care (01) ==
PROVIDERS: PCP Internal Medicine; Visit Provider Student in an Organized Health Care Education/Training Program
DX: M06.09 Rheumatoid arthritis without rheumatoid factor, multiple sites (principal); Z13.820 Encounter for screening for osteoporosis; Z79.631 Long term (current) use of antimetabolite agent
CPT/HCPCS: 99214

== ENCOUNTER → 2024-01-16 13:49 | Outpatient (BNVA) | payer MEDICARE, OTHER, SELFPAY | PROVIDERS: PCP Internal Medicine; Visit Provider Student in an Organized Health Care Education/Training Program | DX: M06.09 Rheumatoid arthritis without rheumatoid factor, multiple sites (principal); Z13.820 Encounter for screening for osteoporosis; Z79.631 Long term (current) use of antimetabolite agent; Z79.899 Other long term (current) drug therapy | CPT/HCPCS: 99212 ==

== ENCOUNTER 2024-05-28 13:15 | Outpatient (AMB) | payer MEDICARE, OTHER, SELFPAY ==
--- NOTE | 2024-05-28 13:20 | A.OFFVIS_ITS ---
Vital Signs 05/28/24 13:21 Height 5 ft 4 in Weight 139 lb BMI 23.9 BP 138/80 Blood Pressure Location Lt brachial Position Sitting Pulse 77 Pulse Source Pulse Oximeter Pulse Oximetry (%) 97 Oxygen Delivery Method Room Air Intake Visit Reasons: RA Intake Note: Patient is here to followup on RA today. Allergies lisinopril Allergy (Unknown, Verified 05/28/24 13:22) Unknown Medication List - Last Reconciled 05/28/24 by James Goldberg MD albuterol sulfate 90 mcg/actuation (ProAir HFA) 2 puffs inhalation Q6H PRN ascorbic acid (vitamin C) 1 g PO DAILY aspirin (Adult Low Dose Aspirin) 81 mg PO DAILY calcium carbonate-vitamin D3 600 mg-10 mcg (400 unit) (Calcium 600 + D(3)) 1 tab PO DAILY clopidogrel (Plavix) 75 mg PO DAILY ferrous sulfate 325 mg PO BID fludrocortisone 0.1 mg PO DAILY fluticasone furoate-vilanterol 100-25 mcg/dose (Breo Ellipta) 1 ea inhalation DAILY fluticasone propion-salmeterol 500-50 mcg/dose (Advair Diskus) 1 inh inhalation BID folic acid 3 mg (3 x 1 mg) PO DAILY furosemide 20 mg PO DAILY methotrexate sodium 20 mg (8 x 2.5 mg) PO QWEEK midodrine 10 mg PO DAILY omega 8-fmb-jyx-fish oil 1,000 mg (120 mg-180 mg) (Fish Oil) 1 cap PO DAILY simvastatin 40 mg PO DAILY wheat dextrin (Best Fiber) 1.5 grams PO BID HPI Comments Details: 88-year-old female with seropositive RA/OA returns for follow-up. On methotrexate 20 mg once weekly, folic acid 3 mg daily. She presents today with her and daughter. Family stated that patient has been doing reasonably well overall in terms of her joint pain, stiffness and swelling. Has not had anything noticeable. With the mentioned however is that she has had repeated falls and irregularities of her blood pressure. Her was advised to her midodrine if her BP drops below 120. She has had multiple falls but no injuries since last visit. Initial history This is an 87-year-old female with past medical history of hypertension, dyslipidemia, COPD who presents for evaluation of arthritis. Patient stated she was diagnosed with rheumatoid arthritis by Dr. New more than 20 years ago and was on methotrexate for 1-2 years. She stated that her overall stiffness was better when she was on methotrexate. She had been off methotrexate for about 20 years. Her main complaint is bilateral shoulder stiffness rather than pain. The stiffness lasts all day. She has difficulty elevating her shoulders above her head. Her has to help her with activities of daily living. She states that her shoulders crack when she moves them. She she has swelling of her entire legs bilaterally. Compression stockings were suggested by her PCP with some improvement. [facility] Medical History Anemia COPD (chronic obstructive pulmonary disease) Rheumatoid arthritis Hypercholesteremia Arrhythmia Hypertension Surgical History H/O cystoscopy History of laparoscopic cholecystectomy Hx of appendectomy Family History Father Gout Hypertension CVA (cerebral vascular accident) Kidney disease Mother Heart disease Social History Household Members: Spouse Housing Other:: mobile home Alcohol intake: never Patient Tobacco Use Status: Former Tobacco user Years Smoked: quit 30- 40 years ago service: No Current occupational status: retired Current occupation: worked in [employer] formerly Review of Systems [facility] [place] Denies arthralgias, Denies joint swelling, Reports limited range of motion and Denies stiffness Skin/Breast Details: Unsteady Physical Exam Vital Signs: Last Vital Signs Pulse 77 05/28/24 13:21 BP 138/80 05/28/24 13:21 Pulse Ox 97 05/28/24 13:21 Oxygen Delivery Method Room Air 05/28/24 13:21 BMI result Body Mass Index 23.9 Const General: cooperative, healthy appearing and comfortable Nutritional Appearance: average body habitus Limitations: wheelchair HEENT Head: Yes normocephalic and Yes atraumatic Mouth: Normal oral and palatal mucosa present Resp Effort & Inspection: normal respiratory effort and able to speak in complete sentences Cardio Rate: regular rate Rhythm: regular rhythm Skin General skin exam: no rashes or lesions noted Extrem Other: Limited range of motion of both shoulders Bilateral shoulder crepitus with movement. Osteoarthritic changes of her hands with no synovitis No knee pain with flexion-extension bilaterally Inability to fully extend her right knee When walking, does not straighten her right knee No ankle tenderness to palpation today No MTP tenderness today Normal nailfold capillaroscopy Assessment & Plan Assessment & Plan (1) Rheumatoid arthritis: Comment: -ve RF +++CCP dx around 2009 & was on MTX, then lost to f/u & DC MTX MTX 05/26 Code(s): M06.9 - Rheumatoid arthritis, unspecified Category: Medical Qualifiers: Rheumatoid arthritis location: multiple sites Rheumatoid factor presence: without rheumatoid factor Qualified Code(s): M06.09 - Rheumatoid arthritis without rheumatoid factor, multiple sites Plan: This is an 88-year-old female with seropositive RA who returns for follow-up. On methotrexate 20 mg once weekly plus folic acid 3 mg daily. Doing quite well with no active synovitis. Inflammatory markers are normal Continue methotrexate 20 mg weekly. Continue folic acid 3 mg daily. Start Leucovorin 5 mg once weekly due to macrocytosis Blood work before next visit in 4 months Infectious screening: Hepatitis panel and T spot -ve 2021 (2) Screening for osteoporosis: Code(s): Z13.820 - Encounter for screening for osteoporosis Category: Medical Plan: DEXA 07/2023. Showed normal bone density (3) snf methotrexate user: Code(s): Z79.631 - snf (current) use of antimetabolite agent Category: Medical Plan: Monitor safety labs Plan I spent 27 minutes reviewing patient's chart, evaluating patient, ordering diagnostic workup, counseling patient & and documenting in the chart Orders: Orders Comprehensive Met. 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 Erythrocyte Sedimentation Rate 4 Months M06.09 - Rheumatoid arthritis without rheumatoid factor, multiple sites, Z79.631 - snf (current) use of antimetabolite agent Medications: New leucovorin calcium Take 1 tab once weekly the day after you take methotrexate 5 mg PO QWEEK 12 tabs 1RF Refilled folic acid 3 mg (3 x 1 mg) PO DAILY 270 tabs 1RF Coding Level of Care Code Est Pt Level 4 (84882) Diagnoses Rheumatoid arthritis of multiple sites with negative rheumatoid factor M06.09 Rheumatoid arthritis location: multiple sites Rheumatoid factor presence: without rheumatoid factor Screening for osteoporosis 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
[2024-05-28 13:21] VITALS: BP 138/80; PULSE 77; O2SAT 97; BMI 23.9
== END 2024-05-28 13:50 | disposition home or self-care (01) ==
PROVIDERS: PCP Internal Medicine; Visit Provider Student in an Organized Health Care Education/Training Program
DX: M06.09 Rheumatoid arthritis without rheumatoid factor, multiple sites (principal); Z13.820 Encounter for screening for osteoporosis; Z79.631 Long term (current) use of antimetabolite agent
CPT/HCPCS: 99214

== ENCOUNTER → 2024-05-28 13:15 | Outpatient (BNVA) | payer MEDICARE, OTHER, SELFPAY | PROVIDERS: PCP Internal Medicine; Visit Provider Student in an Organized Health Care Education/Training Program | DX: M06.09 Rheumatoid arthritis without rheumatoid factor, multiple sites (principal); R29.6 Repeated falls; Z13.820 Encounter for screening for osteoporosis; Z79.631 Long term (current) use of antimetabolite agent | CPT/HCPCS: 99212 ==

== ENCOUNTER 2024-10-06 14:02 | Outpatient (AMB) | payer MEDICARE, OTHER, SELFPAY ==
--- NOTE | 2024-10-06 14:03 | A.OFFVIS_ITS ---
Vital Signs 10/06/24 14:04 Height 5 ft 4 in Weight 138 lb BMI 23.7 BP 118/74 Blood Pressure Location Lt brachial Position Sitting Pulse 74 Pulse Source Pulse Oximeter Pulse Oximetry (%) 97 Oxygen Delivery Method Room Air Intake Visit Reasons: RA/CM Intake Note: Patient last seen by Doctor James Goldberg on 05/28/24. Presents today for RA follow up and test results. Supervisor Hardboard Required: No Accompanied by: Daughter Allergies lisinopril Allergy (Unknown, Verified 10/06/24 14:10) Unknown Medication List - Last Reconciled 10/06/24 by James Goldberg MD albuterol sulfate 90 mcg/actuation (ProAir HFA) 2 puffs inhalation Q6H PRN ascorbic acid (vitamin C) 1 g PO DAILY aspirin (Adult Low Dose Aspirin) 81 mg PO DAILY calcium carbonate-vitamin D3 600 mg-10 mcg (400 unit) (Calcium 600 + D(3)) 1 tab PO DAILY clopidogrel (Plavix) 75 mg PO DAILY ferrous sulfate 325 mg PO BID fludrocortisone 0.1 mg PO DAILY fluticasone furoate-vilanterol 100-25 mcg/dose (Breo Ellipta) 1 ea inhalation DAILY fluticasone propion-salmeterol 500-50 mcg/dose (Advair Diskus) 1 inh inhalation BID folic acid 3 mg (3 x 1 mg) PO DAILY leucovorin calcium 5 mg PO QWEEK methotrexate sodium 20 mg (8 x 2.5 mg) PO QWEEK midodrine 5 mg PO TID simvastatin 40 mg PO DAILY wheat dextrin (Best Fiber) 1.5 grams PO BID HPI Comments Details: 88-year-old female with seropositive RA & generalized OA who returns for follow- up. She remains on methotrexate 20 mg once weekly. She presents with her daughter. She states that she feels about the same overall. She continues to feel generalized achiness. She takes Tylenol 2 tablets in the morning and at night. She has been getting weaker slowly. Per daughter, home physical therapy has been coming less frequently. Now they come every 2 weeks. Initial history This is an 87-year-old female with past medical history of hypertension, dyslipidemia, COPD who presents for evaluation of arthritis. Patient stated she was diagnosed with rheumatoid arthritis by Dr. New more than 20 years ago and was on methotrexate for 1-2 years. She stated that her overall stiffness was better when she was on methotrexate. She had been off methotrexate for about 20 years. Her main complaint is bilateral shoulder stiffness rather than pain. The stiffness lasts all day. She has difficulty elevating her shoulders above her head. Her has to help her with activities of daily living. She states that her shoulders crack when she moves them. She she has swelling of her entire legs bilaterally. Compression stockings were suggested by her PCP with some improvement. [facility] Medical History Anemia COPD (chronic obstructive pulmonary disease) Rheumatoid arthritis Hypercholesteremia Arrhythmia Hypertension Surgical History H/O cystoscopy History of laparoscopic cholecystectomy Hx of appendectomy Family History Father Gout Hypertension CVA (cerebral vascular accident) Kidney disease Mother Heart disease Social History Household Members: Spouse Housing Other:: mobile home Alcohol intake: never Patient Tobacco Use Status: Former Tobacco user Years Smoked: quit 30- 40 years ago service: No Current occupational status: retired Current occupation: worked in [employer] formerly [employer] [facility] Reports back pain, Reports arthralgias, Denies joint swelling, Reports limited range of motion and Reports stiffness Physical Exam Vital Signs: Last Vital Signs Pulse 74 10/06/24 14:04 BP 118/74 10/06/24 14:04 Pulse Ox 97 10/06/24 14:04 Oxygen Delivery Method Room Air 10/06/24 14:04 BMI result Body Mass Index 23.7 Const General: cooperative, healthy appearing and comfortable Nutritional Appearance: average body habitus Limitations: wheelchair HEENT Head: Yes normocephalic and Yes atraumatic Mouth: Normal oral and palatal mucosa present Resp Effort & Inspection: normal respiratory effort and able to speak in complete sentences Cardio Rate: regular rate Rhythm: regular rhythm Skin General skin exam: no rashes or lesions noted Extrem Other: Limited range of motion of both shoulders Bilateral shoulder crepitus with movement. Osteoarthritic changes of her hands with no synovitis No knee warmth or swelling bilaterally No knee pain with flexion-extension bilaterally Inability to fully extend her right knee When walking, does not straighten her right knee No ankle tenderness to palpation today No MTP tenderness today Normal nailfold capillaroscopy Assessment & Plan Assessment & Plan (1) Rheumatoid arthritis: Comment: -ve RF +++CCP dx around 2009 & was on MTX, then lost to f/u & DC MTX MTX 05/26 Code(s): M06.9 - Rheumatoid arthritis, unspecified Category: Medical Qualifiers: Rheumatoid arthritis location: multiple sites Rheumatoid factor presence: without rheumatoid factor Qualified Code(s): M06.09 - Rheumatoid arthritis without rheumatoid factor, multiple sites Plan: This is an 88-year-old female with seropositive RA who returns for follow-up. On methotrexate 20 mg once weekly, Leucovorin 5 mg weekly plus folic acid 3 mg daily. Doing quite well with no active synovitis. 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 Panel 4 Months M06.09 - Rheumatoid arthritis without rheumatoid factor, multiple sites, Z79.631 - termite renewal inspector (current) use of antimetabolite agent C Reactive Protein 4 Months M06.09 - Rheumatoid arthritis without rheumatoid f actor, multiple sites, Z79.631 - termite renewal inspector (current) use of antimetabolite agent Coding Level of Care Code Est Pt Level 4 (94314) Complex EM visit Add On G2211 Diagnoses Rheumatoid arthritis of multiple sites with negative rheumatoid factor M06.09 Rheumatoid arthritis location: multiple sites Rheumatoid factor presence: without rheumatoid factor 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
[2024-10-06 14:04] VITALS: BP 118/74; PULSE 74; O2SAT 97; BMI 23.7
--- OUTSIDE RECORDS SUMMARY | 2024-10-13 14:48 | XMS_ITS ---
Author Organization [facility] Address [address] [place] [address] Care Team Providers Care Senior Reservations Agent Name Role Phone Chalo Garcia MD Primary Care Provider Michael Malone Unavailable [phone] Allergies Allergen (clinical drug ingredient) Drug/Non Drug Allergy documented on EMR Reaction Allergy Type Onset Date Status lisinopril Lisinopril Unknown Drug Allergy Activ e REASON FOR VISIT Open sore - Toe Medications Medication SIG (Take, Route, Frequency, Duration) Notes Start Date End Date Status Methotrexate Sodium 2.5 MG as directed Orally Active Midodrine HCl 10 MG 1 tablet Orally Twic e a day Active Aspirin 81 MG 1 tablet Orally Once a day Active Breo Ellipta 100-25 MCG/ACT 1 puff Inhal ation Once a day Active Folic Acid 1 MG 1 tablet Orally Once a day Active Clopidogrel Bisulfate 75 MG 1 tablet Ora lly Once a day Active Iron (Ferrous Sulfate) 325 (65 Fe) MG 1 tablet Orally Three times a Week Active Fludrocortisone Acetate 0.1 MG 1 tablet Orally Once a day Active Simvastatin 40 MG 1 tablet in the even ing Orally Once a day Active Acetaminophen 325 MG 1 tablet as needed Orally every 6 hrs Active Albuterol Sulfate Ac tive Social History Tobacco Use: Social History Observation Description Date Details (start date - stop date) Former Smoker NA - NA Tobacco Use/Smoking Question Answer Notes Are you a: former smoker Additional Findings: Tobacco Non-User Current no n-smoker Alcohol Screen Question Answer Notes Did you have a drink containing alcohol in the p ast year? No Points 0 Interpretation Negative Tobacco use other than smoking: Question Answer Notes Are you an other tobacco user? No Vital Signs Height 5 ft 3 in in 07/31/2024 Weight 138 lbs 07/31/2024 BMI 24.44 kg/m2 07/31/2024 Procedures Procedure Date Ordered Date Performed Result Body Sit e 36361- Debride <25 sq cm 07/31/2024 N/A Encounters Encounter Location Date Provider Diagnosis [facility] [address] [address] 07/31/2024 Michael Grijalva Skin ulcer of toe of left foot, limited to breakdown of skin L97.521 and Skin ulcer of toe of right foot, limited to breakdown of skin L97.511 Assessments Encounter Date Diagnosis (ICD Code) Assessment Notes Treatment Notes Treatment Clinical Notes Section Notes 07/31/2024 Skin ulcer of toe of left foot, limited to breakdown of skin (ICD-10 - L97.521) Patient Educated with: WOUND CARE INSTRUCTIONS.p df (WOUND CARE INSTRUCTIONS.p df) 07/31/2024 Skin ulcer of toe of right foot, limited to breakdown of skin (ICD-10 - L97.511) Patient Educated with: WOUND CARE INSTRUCTIONS.p df (WOUND CARE INSTRUCTIONS.p df) Plan Of Treatment Treatment Notes Assessment Notes Skin ulcer of toe of left fo ot, limited to breakdown of skin Patient Educated with: WOUND CARE INSTRUCTIONS.pdf (WOUND CARE INSTRUCTIONS.pdf) Skin ulcer of toe of right f oot, limited to breakdown of skin Patient Educated with: WOUND CARE INSTRUCTIONS.pdf (WOUND CARE INSTRUCTIONS.pdf) Pending Test Test Name Order Date 75674- Debride <25 sq cm 07/31/2024 Next Appt Details Follow Up: prn, Reason: Provider Name:Michael Grijalva , 11/06/2024 12:30:00 PM, [address] [place] [address], [phone], Procedure Notes * Category Sub-Category Detail Notes Debride skin< 25 sq cm Open wound Physician of record performed open wound selective debridement of first 25 sq cm or less, of devitilized necrotic/nonviable soft tissue, fibrin, and exudate extending from the epidermis through the dermis, utilizing sharp dissection with sterile 15 blade, and/or tissue nippers. Sterile antibiotic dressing applied, ANESTHESIA- was accomplished TOPICALLY with Lidocaine Hydrochloride Jelly 2 percent. Hemostasis was achieved through direct pressure. Post debridement measurements: 13mm x 13mm x 2mm ea. Character of the wound post debridement is stable (53126) Progress Notes * Rossy OBRIENDOB: [birth year] (89 yo F)Acc No.[id number]:07/31/2024 Progress Notes Patient:?Rossy Obrien Provider:?Michael Grijalva DPM :1935???Age:89 Y???Sex:Female D ate:07/31/2024 Address:[facility] [place] , [address] Pcp:Chalo Garcia MD Subjective: * Chief Complaints: * ???Open sore - Toe * HPI: ???Skin problems:?Nature:?Open sore.?Treatments:?Topical abx, soaks.? * ROS:?General/Constitutional:?Nausea?denies.?Vomiting?denies.?Hunger Thirst?denies.?Loss appetite?denies.?Chills?denies.?Fatigue?denies.?Fever?denies.?Night Sweats?denies.?Unexplained weight loss?denies.?Unexplained weight gain?denies.?HEENTM:?Dentures?admits.?Dizziness?denies.?Glasses/contacts?admits.?Retinopathy?de nies.?Blurred/double vision?denies.?TMJ?denies.?Discharge/drainage?denies.?Implants?denies.?Sore throat?denies.?Dental implants?denies.?Hard of hearing ?denies.?Difficulty chewing/swallowing/speaking?denies.?Nose bleeds?denies.?Sore mouth?denies.?Respiratory:?On Oxygen?denies.?Pneumonia/pleurisy?denies.?Bronchitis?denies.?Emphysema?denies.?C oughing?denies.?Cough blood?denies.?Shortness of breath?denies.?Wheezing?denies.?Cardiovascular:?Pacemaker?denies.?MVP?denies.?WPW?denies.?CHF?denies.?Heart attack?denies.?Septal defect?denies.?Rapid beat?denies.?Chest pain ?denies.?Atrial Fib.?denies.?Murmur/Palpitations?denies.?Gastrointestinal:?Hemorrhoids?denies.?Stomach/Abdominal pain?denies.?Dark blood stool?denies.?Irritable bowel ?denies.?Constipation?denies.?Diarrhea?denies.?Hematology:?Swelling?admits.?Clots?denies.?Varicose Veins?denies.?Bruising?admits, on plavix.?Bleeding problem?admits, on anticoagulants.?Genitourinary:?Blood urine?denies.?Frequent/Painfu/urination/bladder control?denies.?Kidney stones?denies.?Infection (UTI)?denies.?Nephropathy?denies.?sex trans dis (STD)?denies.?Prostate?denies.?Musculoskeletal:?Hammertoes?admits.?Bunions?denies.?Back Pain?denies.?Muscle Cramps/ Resting?denies.?Muscle cramps / walking?denies.?Generalized aches and pains?denies.?Weakness?denies.?Integ.:?Valladares?denies.?Scars?denies.?Corns/calluses?admits.?Ingrown nails?admits.?Painful nails?admits.?Open Sores?denies.?Rashes?denies.?Neurologic:?Difficulty sleeping?denies.?Brain disorder?denies.?Numbness?denies.?Balance trouble?admits.?Confusion?denies.?Fainting/blackouts?denies.?Tingling?denies.?Tr emors?denies.? * Medical History:? * Surgical History:?tongue, cu t 07/2024 * Hospitalization/Major Diagno stic Procedure:?Denies Past Hospitalization * Family History:?Mother: unkn own.?Father: unknown.? * Social History:?Tobacco Use:?Tobacco Use/Smoking?Are you a:?former smoker ?Additional Findings: Tobacco Non-User?Current non-smoker ?Tobacco use other than smoking?Are you an other tobacco user??No ???Drugs/Alcohol:?Drugs?Have you used drugs other than those for medical reasons in the past 12 months??No ?Alcohol Screen?Did you have a drink containing alcohol in the past year??No ?Points?0 ?Interpretation?Negative ???Miscellaneous:?Caffeine: yes, frequency:. ?Children: yes. ?no Exercise. ?Marital status: . ?Occupation: Retired. * Medications:?TakingAlbuterol Sulfate Acetaminophen 325 MG Tablet 1 tablet as needed Orally every 6 hrsSimvastatin 40 MG Tablet 1 tablet in the evening Orally Once a dayFludrocortisone Acetate 0.1 MG Tablet 1 tablet Orally Once a dayIron (Ferrous Sulfate) 325 (65 Fe) MG Tablet 1 tablet Orally Three times a WeekClopidogrel Bisulfate 75 MG Tablet 1 tablet Orally Once a dayAspirin 81 MG Tablet Chewable 1 tablet Orally Once a dayMidodrine HCl 10 MG Tablet 1 tablet Orally Twice a dayMethotrexate Sodium 2.5 MG Tablet as directed Orally Folic Acid 1 MG Tablet 1 tablet Orally Once a dayBreo Ellipta 100-25 MCG/ACT Aerosol Powder Breath Activated 1 puff Inhalation Once a dayMedication List reviewed and reconciled with the patientTaking Albuterol Sulfate Taking Acetaminophen 325 MG Tablet 1 tablet as needed Orally every 6 hrsTaking Simvastatin 40 MG Tablet 1 tablet in the evening Orally Once a dayTaking Fludrocortisone Acetate 0.1 MG Tablet 1 tablet Orally Once a dayTaking Iron (Ferrous Sulfate) 325 (65 Fe) MG Tablet 1 tablet Orally Three times a WeekTaking Clopidogrel Bisulfate 75 MG Tablet 1 tablet Orally Once a dayTaking Aspirin 81 MG Tablet Chewable 1 tablet Orally Once a dayTaking Midodrine HCl 10 MG Tablet 1 tablet Orally Twice a dayTaking Methotrexate Sodium 2.5 MG Tablet as directed Orally Taking Folic Acid 1 MG Tablet 1 tablet Orally Once a dayTaking Breo Ellipta 100-25 MCG/ACT Aerosol Powder Breath Activated 1 puff Inhalation Once a dayMedication List reviewed and reconciled with the patient * Allergies:?Lisinoprilyes[All ergies Verified] Objective: * Vitals:?Ht: 5 ft 3 in, Wt:13 8, BMI: 24.44, Shoe size:8, Ht-cm: 160.02 cm, Wt-k.6 kg. * Examination: ???Dermatologic: ?ULCER:? LOCATION, Dorsal, TA, T5, SIZE, 12mm X 4mm X 1-2mm,ea,? BASE, granular to epithelialized, RIM, hyperkeratotic, UNDERMINING, absent, TRACKING, Partial to, Full thickness breakdown of skin, DRAINAGE, serosanguineous, mild, NECROTIC TISSUE, loosely-adherent, yellow slough, MALODOR, absent, CALOR, absent, ERYTHEMA, absent, PAIN ON PALPATION, mild.? Assessment: * Assessment: 1.?Skin ulcer of toe of left foot, limited to breakdown of skin - L97.521?2.?Skin ulcer of toe of right foot, limited to breakdown of skin - L97.511 (Primary)? Plan: * Treatment: 2.?Skin ulcer of toe of left foot, limited to breakdown of skin?Procedure: 83942- Debride <25 sq cm Notes: Patient Educated with: WOUND CARE INSTRUCTIONS.pdf (WOUND CARE INSTRUCTIONS.pdf)?? * Procedures:?Debride skin< 25 sq cm:?Open wound?Physician of record performed open wound selective debridement of first 25 sq cm or less, of devitilized necrotic/nonviable soft tissue, fibrin, and exudate extending from the epidermis through the dermis, utilizing sharp dissection with sterile 15 blade, and/or tissue nippers. Sterile antibiotic dressing applied, ANESTHESIA- was accomplished TOPICALLY with Lidocaine Hydrochloride Jelly 2 percent. Hemostasis was achieved through direct pressure. Post debridement measurements: 13mm x 13mm x 2mm ea. Character of the wound post debridement is stable (19298).? * Procedure Codes:?75210 ACTIV E WOUND CARE/20 CM OR < * Preventive Medicine:? ??Counseling:?Ulcer:?A detailed plan of care was reviewed with the patient. We emphasized the fact that the patient takes on an active participating role in the treatment process and emphasized to them that they are an included, valued, and important member of the wound healing team in order to reach an expedient successful outcome. The patient agreed to follow their medically recommended diet while increasing their protein intake if safely able to do so, maintain proper bodily hydaration, abide by weight-bearing restrictions at all times, quit all current smoking habits if any, and diligently follow any/all dressing change instructions. It was clearly made known to the patient that if they fail to do their part, they will likely extend their course of treatment as well as possibly increase their risk of adverse events including amputation. The patient was instructed on importance of proper wound care consisting of pressure reduction, and proper maintainance of a moist wound environment. The patient is to cleanse the wound with warm soapy water/peroxide/saline, or betadine BID based on product availability. The patient is to apply ( Neosporin, Polysporin, or Triple, ) Antibiotic to the wound and cover with a DSD as directed. The patient was instructed to change dressings according to orders, or PRN saturation, leaks. The patient was instructed to monitor and report any signs or symptoms of infection or any untoward reactions. Precautions Taken: Offloading/Pressure reduction via rest/ limited activity to essential to daily life only, shoe modification, accommodative padding, sharp debridement, and take/apply medication as directed. THE GOALS of wound debridement to remove devitilized tissue, decrease risk for infection, promote wound healing and prevent further complication were discussed/reviewed. Debridement frequency as indicated, Given recent successful results to treatment, The patient is to cont the local wound care as directed till completely healed.? * Follow Up:?prn * Images: * Sign off status: Completed true * Provider:?Michael Grijalva DPM Date:?2023 Generated for Ewelina webb/Krystal/Theodora on:?10/13/2024 02:48 PM EST History and Physical Notes * HPI (History of Present Illness) Category Sub-Category Detail Notes Category Not es Skin problems Nature: Open sore Treatments: Topical abx, soaks Examination Category Sub-Category Detail Notes Category Not es Dermatologic ULCER: LOCATION, Dorsal , TA, T5, SIZE, 12mm X 4mm X 1-2mm,ea, BASE, granular to epithelialized, RIM, hyperkeratotic, UNDERMINING, absent, TRACKING, Partial to, Full thickness breakdown of skin, DRAINAGE, serosanguineous, mild, NECROTIC TISSUE, loosely-adherent, yellow slough, MALODOR, absent, CALOR, absent, ERYTHEMA, absent, PAIN ON PALPATION, mild
--- OUTSIDE RECORDS SUMMARY | 2024-10-13 14:49 | XMS_ITS | Patient Health Record ---
Author Organization [facility] [place] Address [address] [place] [address] Care Team Providers Care Manager Technology Name Role Phone Chalo Garcia MD Primary Care Provider Michael Malone Unavailable [phone] Allergies Allergen (clinical drug ingredient) Drug/Non Drug Allergy documented on EMR Reaction Allergy Type Onset Date Status lisinopril Lisinopril Unknown Drug Allergy Activ e Reason For Referral No Information Medications Medication SIG (Take, Route, Frequency, Duration) [...] 6 hrs Active Albuterol Sulfate Ac tive Breo Ellipta 100-25 MCG/ACT 1 puff Inhal ation Once a day Active Folic Acid 1 MG 1 tablet Orally Once a day Active Social History Tobacco Use: Social History Observation [...] Are you an other tobacco user? 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, with unspecified presence of clinical manifestation (I70.203) Active confirmed Vital Signs Height 5 ft 3 in in 07/31/2024 Weight 138 lbs 07/31/2024 BMI 24.44 kg/m2 07/31/2024 Procedures Procedure Date Ordered Date Performed Result Body Sit e 00662- I&D ABSCESS-COMPLICATED,MULTI 07/16/2024 N/A 13941- Debride <25 sq cm 07/31/2024 N/A Encounters Encounter Location Date [facility] [address] [address] 07/16/2024 Michael Grijalva Atherosclerosis of platinum artery of both lower extremities, with unspecified presence of clinical manifestation I70.203 ; Tinea unguium B35.1 ; Pain in right toe(s) M79.674 ; Pain in left toe(s) M79.675 ; Abscess of toe of left foot L02.612 and Abscess of toe of right foot L02.[address] [facility] [address] [address] 07/31/2024 Michael Grijalva Skin ulcer of toe of left foot, limited to breakdown of skin L97.521 and Skin ulcer of toe of right foot, limited to breakdown of skin L97.511 [facility] [address] 07/17/2024 Michael Grijalva Assessments Encounter Date Diagnosis (ICD Code) Assessment Notes Treatment Notes Treatment Clinical Notes Section Notes 07/16/2024 Tinea unguium (ICD-10 - B35.1) 07/16/2024 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 pdf (WOUND CARE INSTRUCTIONS. pdf) 07/31/2024 Skin ulcer of toe of right foot, limited to breakdown of skin (ICD-10 - L97.511) Patient Educated with: WOUND CARE INSTRUCTIONS. pdf (WOUND CARE INSTRUCTIONS. pdf) 07/16/2024 Pain in right toe(s) (ICD-10 - M79.674) 07/16/2024 Pain in left toe(s) (ICD-10 - M79.675) 07/16/2024 Abscess of toe of left foot (ICD-10 - L02.612) Patient Educated with: WOUND CARE INSTRUCTIONS. pdf (WOUND CARE INSTRUCTIONS. pdf) 07/16/2024 Abscess of toe of right foot (ICD-10 - L02.611) Patient Educated with: WOUND CARE INSTRUCTIONS. pdf (WOUND CARE INSTRUCTIONS. pdf) Plan Of Treatment Pending Test Test Name Order Date 92418- Debride <25 sq cm 07/31/2024 06205- I&D ABSCESS-COMPLICATED,MULTI 10/2024 Next Appt Details Provider Name:Michael Yasmin Grijalva , 11/06/2024 12:30:00 PM, [address] [place] [address], [phone], Insurance Providers Payer Name Payer Address Payer Phone Subscriber Number Group Number Insured Name Patient Relationship to Insured Coverage Start Date Coverage End Date Medicare [employer] [address] [place] [address] [id number] Rossy Obrien Self - patient is the insured 2 [place]) [address] [place] [address] [phone] [id number] Rossy Obrien Self - patient is the insured Medical (General) History Medical History History ICD Code Arthritis asthma Cataracts High Blood Pressure Surgical History Surgery Date(Month/Year) tongue, cut 07/2024
--- OUTSIDE RECORDS SUMMARY | 2024-10-13 14:49 | XMS_ITS ---
Author Organization [facility] Address [address] [place] [address] Care Team Providers Care Tools And Parts Attendant Name Role Phone Chalo Garcia MD Primary Care Provider Michael Malone Unavailable [phone] Allergies Allergen (clinical drug ingredient) Drug/Non Drug Allergy documented on EMR Reaction Allergy Type Onset Date Status lisinopril Lisinopril Unknown Drug Allergy Activ e REASON FOR VISIT At Risk Footcare, Possible Infection Medications Medication SIG (Take, Route, Frequency, Duration) Notes Start Date End Date Status Aspirin 81 MG 1 tablet Orally Once a day Active Midodrine HCl 10 MG 1 tablet Orally Twic e a day Active Folic Acid 1 MG 1 tablet Orally Once a day Active Breo Ellipta 100-25 MCG/ACT 1 puff Inhal ation Once a day Active Methotrexate Sodium 2.5 MG as directed Orally Active Iron (Ferrous Sulfate) 325 (65 Fe) MG 1 tablet Orally Three times a Week Active Clopidogrel Bisulfate 75 MG 1 tablet Ora lly Once a day Active Acetaminophen 325 MG 1 tablet as needed Orally every 6 hrs Active Simvastatin 40 MG 1 tablet in the even ing Orally Once a day Active Fludrocortisone Acetate 0.1 MG 1 tablet Orally Once a day Active Albuterol Sulfate Ac tive Social History [...] W/U Status Risk Notes Problem Atherosclerosis of [place] arteries of the extremities ([id number]) Atherosclerosis of [place] artery of both lower extremities, with unspecified presence of clinical manifestation (I70.203) Active confirmed Vital Signs Height 5 ft 3 in in 07/16/2024 Weight 138 lbs 07/16/2024 BMI 24.44 kg/m2 07/16/2024 Procedures Procedure Date Ordered Date Performed Result Body [place] e 51985- I&D ABSCESS-COMPLICATED,MULTI 07/16/2024 N/A Encounters Encounter Location Date Provider Diagnosis [facility] [address] [address] 07/16/2024 Michael Grijalva Atherosclerosis of [place] artery of both lower extremities, with unspecified presence of clinical manifestation I70.203 ; Tinea unguium B35.1 ; Pain in right toe(s) M79.674 ; Pain in left toe(s) M79.675 ; Abscess of toe of left foot L02.612 and Abscess of toe of right foot L02.611 Assessments Encounter Date Diagnosis (ICD Code) Assessment Notes Treatment Notes Treatment Clinical Notes Section Notes 07/16/2024 Atherosclerosis of [place] artery of both lower extremities, with unspecified presence of clinical manifestation (ICD-10 - I70.203) 07/16/2024 Tinea unguium (ICD-10 - B35.1) 07/16/2024 Pain in right toe(s) (ICD-10 - M79.674) 07/16/2024 Pain in left toe(s) (ICD-10 - M79.675) 07/16/2024 Abscess of toe of left foot (ICD-10 - L02.612) Patient Educated with: WOUND CARE INSTRUCTIONS. pdf (WOUND CARE INSTRUCTIONS. pdf) 07/16/2024 Abscess of toe of right foot (ICD-10 - L02.611) Patient Educated with: WOUND CARE INSTRUCTIONS. pdf (WOUND CARE INSTRUCTIONS. pdf) Plan Of Treatment Treatment Notes Assessment Notes Abscess of toe of left foot Patient Educ ated with: WOUND CARE INSTRUCTIONS.pdf (WOUND CARE INSTRUCTIONS.pdf) Abscess of toe of right foot Patient Edu cated with: WOUND CARE INSTRUCTIONS.pdf (WOUND CARE INSTRUCTIONS.pdf) Pending Test Test Name Order Date 35603- I&D ABSCESS-COMPLICATED,MULTI 10/2024 Next Appt Details Follow Up: 2 Weeks, Reason: Provider Name:Michael Hoffman Rudi , 11/06/2024 12:30:00 PM, [address] [place], [address], Procedure Notes * Category Sub-Category Detail Notes I&D nail abscess Location Medial nail bor ders TA, T5 Procedure Performed incision a nd drainage of Multiple Nail Abscesses with use of sterile nail nipper/316 blade. The infected devitalized soft tissue was curettaged to healthy bleeding bed. Approximately ( 0.1 ) cc purulent fluid material was drained from each infection site. Any affected nail portion was removed to the eponychium . Any evidence of granuloma was also removed at this time. No underlying bone was visualized. There was minimal bleeding as hemostasis was achieved through the temporary use of either a digital tournaquet or the aforementioned local with epinephrine. An application of sterile Bacitracin dressing was performed. Local wound care instructions were discussed and dispensed. Recommended Tylenol or Motrin for pain/discomfort (01510) , CIRCULATION: Pt was advised as to the risk of delayed or nonhealing due to circulation. Pt is to call the office with any questions, concerns, or complications Type Multiple abscesses Anesthesia 3cc of 1 percent Lid ocaine Plain local anesthesic utilizing aseptic technique, to each toe Progress Notes * Rossy OBRIENDOB: [birth year] (88 yo F)Acc No.[id number]:07/16/2024 Progress Notes Patient:?Obrien, Rossy Provider:?Michael Grijalva DPM :1935???Age:88 Y???Sex:Female D ate:07/16/2024 Address:[address] [place] [address], [address] Pcp:Chalo Garcia MD Subjective: * Chief Complaints: * ???At Risk FootcarePossible Infection * HPI: ???At Risk footcare:?Pt States Last PCP Visit:?Date?06/17/2024 ???Possible Infection:?Location:?Great toe , B/L.?Duration:?several weeks.?Course:?improved , unresolved.?Treatments:?medication ( Keflex), prescribed by PCP , improved condition temp, soaks.? * ROS:?General/Constitutional:?Nausea?denies.?Vomiting?denies.?Hunger Thirst?denies.?Loss appetite?denies.?Chills?denies.?Fatigue?denies.?Fever?denies.?Night Sweats?denies.?Unexplained weight [...] cu t 07/2024 * Hospitalization/Major Diagno stic Procedure:?No Hospitalization History. * Family History:?Mother: unkn own.?Father: unknown.? * [...] patient * Allergies:?Lisinoprilyes[All ergies Verified] Objective: * Vitals:?Ht:5 ft 3 in, Wt:138 , BMI: 24.44, Shoe size:8, Ht-cm: 160.02 cm, Wt-k.6 kg. * Examination: ???Abscess/infected nail: ?INSPECTION?Reveals multiple nails with?incurvation, pain on palpation, groove laceration, inflammation, malodor, localized cellulitis, and multiple purulent abscesses with pre-operative sizes of approximately ( 1-2 ) mm square each, without exposed bone, without ascending lymphangitis, medial nail border,?TA, medial nail border,T5.?Vascular: ?DP PULSES:? 0/4, B/L.?PT PULSES:? 0/4, B/L.?CAPILLARY FILL TIME:? delayed, all digits, B/L.?SKIN TEMPERTURE GRADIENT OF THE LOWER EXTERMITIES:? decreased, cool to cool, proximal to distal, B/L.?TROPHIC CONDITION FOR TEXTURE/ELASTICITY/TURGOR/HAIR GROWTH:?decreased, fragile, thin, shiny, with sparse to absent hair growth, B/L.?PIGMENTATION:?rubrous, B/L.?EDEMA:?3/4, pitting, without aching pain, Leg(s) , Ankle(s), Foot, B/L.?CLAUDICATION:?denies, B/L.?REST PAIN:?denies, B/L.?Nails: ?NAILS are:?Elongated, overgrown, dystrophic, lytic, greater than 3mm thick, discolored and friable with crumbly malodorous subungual debris, with pain on palpation, TA, T5, remaining nails are elongated, overgrown, dystrophic.?Dermatologic: ?SKIN FINDINGS:?Skin exam reveals Keratotic lesion(s) located at, Heel(s), B/L.?Orthopedic: ?MUSCLE STRENGTH:?4/5 all groups in a symmetrical fashion, B/L , Generalized decrease in strength.?GAIT ABNORMALITY:?apropulsive , walker-assisted.?DIGITAL DEFORMITIES:?Digital contracture, PIPJ, 2-5 B/L, non-reducible with WB or to push-up test, no over, nor underlapping.?Neurological: ?SENSORY:?Neurological exam reveals intact sensorium, pain sensation normal, vibration sensation intact, pinprick sensation is normal in the lower extremities, Pt denies, anesthesia, burning, paresthesia, tingling, B/L.?General Examination: ?GENERAL APPEARANCE:?Reveals a pleasant, alert, well nourished, well- developed, well hydrated individual, who demonstrates proper attention to hygiene/body habitus, and is in no acute distress, Pt serves as own historian for office visit today , Denies fever, chills, malaise, lymphadenopathy.?ORIENTED:?person, place, and time.? Assessment: * Assessment: 1.?Tinea unguium - B35.1?2.? Atherosclerosis of [place] artery of both lower extremities, with unspecified presence of clinical manifestation - I70.203?3.?Pain in right toe(s) - M79.674?4.?Pain in left toe(s) - M79.675?5.?Abscess of toe of left foot - L02.612?6.?Abscess of toe of right foot - L02.611? Plan: * Treatment: 2.?Abscess of toe of right f oot?Procedure: 52132- I&D ABSCESS-COMPLICATED,MULTI Notes: Patient Educated with: WOUND CARE INSTRUCTIONS.pdf (WOUND CARE INSTRUCTIONS.pdf)?? * Procedures:?I&D nail abscess:?Type?Multiple abscesses.?Anesthesia?3cc of 1 percent Lidocaine Plain local anesthesic utilizing aseptic technique, to each toe.?Location?Medial nail borders TA, T5.?Procedure?Performed incision and drainage of Multiple Nail Abscesses with use of sterile nail nipper/316 blade. The infected devitalized soft tissue was curettaged to healthy bleeding bed. Approximately ( 0.1 ) cc purulent fluid material was drained from each infection site. Any affected nail portion was removed to the eponychium . Any evidence of granuloma was also removed at this time. No underlying bone was visualized. There was minimal bleeding as hemostasis was achieved through the temporary use of either a digital tournaquet or the aforementioned local with epinephrine. An application of sterile Bacitracin dressing was performed. Local wound care instructions were discussed and dispensed. Recommended Tylenol or Motrin for pain/discomfort (91418) , CIRCULATION: Pt was advised as to the risk of delayed or nonhealing due to circulation. Pt is to call the office with any questions, concerns, or complications.? * Procedure Codes:?81228 DRAIN AGE OF SKIN ABSCESS * Preventive Medicine:? ??Counseling:?Discussion:?-04: Office or other outpatient visit for the evaluation and management of a new patient, which required a medically appropriate history and/or examination and MODERATE level of DECISION MAKING for: 1 OR MORE CHRONIC PROBLEM(S) THATS WORSENING, 2 STABLE CHRONIC PROBLEMS, A NEWLY DIAGNOSED PROBLEM WITH UNCERTAIN PROGNOSIS, AN ACUTE COMPLICATED INJURY WITH MULTIPLE TREATMENT OPTIONS, OR AN ACUTE PROBLEM WITH ACCOMPANYING SYSTEMIC SYMPTOMS, THAT POSE(S) A MODERATE RISK OF MORBIDITY. THIS CONDITION MAY ALSO INCLUDE RX DRUG MANAGEMENT, OR A DECISON FOR MINOR SURGERY. The visit on the day of the encounter encompassed interpreting the data and educating the patient as to the nature of their condition, treatment options available according to their individual PMH, meds, allergies, and overall health/living conditions, as well as any potential risks or complications that may occur from a failure to adhere to, and participate in, the recommended course of therapy. The discussion included a complete verbal, and/or written explanation of the examination results, any x-rays taken, the proposed diagnosis, and outline of the treatment plan. A schedule for future care needs was also explained. The patient verbalized an understanding of the instructions at this time and agreed to be an active participant in their treatment. If the patient should think of any questions or concerns after the visit, I have encouraged the patient to call the office.?Fungal Nail Counseling:?The patient was counseled on the diagnosis, potential etiologies (including, but not limited to, environmental factors, genetic, immune deficiency), and the multiple treatment options for Onychomycosis. We discussed the risks and benefits of each option from performing no treatment, to ultraviolet light shoe treatment, to laser nail treatment, to applying topical antifungals, to taking oral antifungal medication, to surgical removal of the involved nail(s) with or without performing a matricectomy, or any combination thereof. We discussed the advantages and disadvantages of each of possible treatment and importance for adherence to all the recommended therapies for optimum success. This includes the necessity for weekly emery board self nail home debridements, and control the nail and skin environment as much as possible by only using a fresh, dry pair of shoes/socks each day, as well as keeping the skin as dry as possible through the use of sprays/powders if necessary. The patient was instructed to discard the emery board after use to prevent reinfection of the involved nail(s). We discussed the mycological and visual clinical effectiveness of topical vs oral antifungal treatments as well as each ones potential side effects and/or any patient- specific medication interactions. We discussed the reasons behind the important requirement of regular liver function testing with oral antifungal therapy for safety. Patient questions regarding use, dosage, successful outcomes, blood tests, and possible pharmaceutical interactions were reviewed and the patient verbalized that all answers were clearly understood.? * Follow Up:?2 Weeks * Images: * Sign off status: Completed true * Provider:?Michael Grijalva DPM Date:?2023 Generated for Ewelina webb/Krystal/Theodora on:?10/13/2024 02:48 PM EST History and Physical Notes * HPI (History of Present Illness) Category Sub-Category Detail Notes Category Not es At Risk footcare Pt States Last PCP Visit: Date: Possible Infection Location: Great toe , B/L Duration: several weeks Course: improved , unresolve d Treatments: medication ( Keflex) , prescribed by PCP , improved condition temp, soaks Examination Category Sub-Category Detail Notes Category Not es Neurological SENSORY: Neurological exa m reveals intact sensorium, pain sensation normal, vibration sensation intact, pinprick sensation is normal in the lower extremities, Pt denies, anesthesia, burning, paresthesia, tingling, B/L Dermatologic SKIN FINDINGS: Skin exam reveal s Keratotic lesion(s) located at, Heel(s), B/L Orthopedic GAIT ABNORMALITY: apropulsive , walker-as sisted DIGITAL DEFORMITIES: Digital contracture , PIPJ, 2-5 B/L, non-reducible with WB or to push-up test, no over, nor underlapping MUSCLE STRENGTH: 4/5 all groups in a symmetrical fashion, B/L , Generalized decrease in strength General Examination GENERAL APPEARANCE: Reveals a pleasant, alert, well nourished, well-developed, well hydrated individual, who demonstrates proper attention to hygiene/body habitus, and is in no acute distress, Pt serves as own historian for office visit today , Denies fever, chills, malaise, lymphadenopathy ORIENTED: person, place, and t renetta Vascular DP PULSES(B): 0/4, B/L PT PULSES(B): 0/4, B/L CAPILLARY FILL TIME: delayed, all digits , B/L TEMPERTURE GRADIENT(C): decreased, cool to cool, proximal to distal, B/L TROPHIC CONDITION-TEXTURE/ELASTICITY/TURGOR/HAIR GROWTH(B): decreased, fragile, thin, shiny, with sp arse to absent hair growth, B/L EDEMA(C): 3/4, pitting, withou t aching pain, Leg(s) , Ankle(s), Foot, B/L CLAUDICATION(C): denies, B/L REST PAIN: denies, B/L PIGMENTATION: rubrous, B/L Nails NAILS are: Elongated, overg rown, dystrophic, lytic, greater than 3mm thick, discolored and friable with crumbly malodorous subungual debris, with pain on palpation, TA, T5, remaining nails are elongated, overgrown, dystrophic Abscess/infected nail INSPECTION Reveals mu ltiple nails with incurvation, pain on palpation, groove laceration, inflammation, malodor, localized cellulitis, and multiple purulent abscesses with pre-operative sizes of approximately ( 1-2 ) mm square each, without exposed bone, without ascending lymphangitis, medial nail border, TA, medial nail border,T5
--- OUTSIDE RECORDS SUMMARY | 2024-10-13 14:49 | XMS_ITS | Clinical Summary ---
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 Name Role Phone BRIANNA PERKINS, MIKEY Unavailable Unavailable CAROLYN PT, CATARINO Unavailable Unavailable Payers Payer Name Policy Type Policy Number Effective Date Expira tion Date MEDICARE - [facility]/DC - PD [id number] Problems Condition Name Condition Details Condition Category Status Onset Date Resolution Date Last Treatment Date Treating Clinician Comments ESSENTIAL (PRIMARY) HYPERTENSION Active 2022-11 00:00: 00 CHRONIC OBSTRUCTIVE PULMONARY DISEASE, UNSPECIFIED Active 2022-11 00:00: 00 UNSPECIFIED DEMENTIA, MILD, WITHOUT BEH/PSYCH/MO OD/ANX Active 2022-11 00:00: 00 PRIMARY OSTEOARTHRIT IS, RIGHT SHOULDER Active 2022-11 00:00: 00 PRIMARY OSTEOARTHRIT IS, LEFT SHOULDER Active 2022-11 00:00: 00 INSOMNIA, UNSPECIFIED Active 2022-11 00:00: 00 PURE HYPERCHOLEST EROLEMIA, UNSPECIFIED Active 2022-11 00:00: 00 RHEUMATOID ARTHRITIS, UNSPECIFIED Active 2022-11 00:00: 00 HYPERCALCEMI A Active 2022-11 00:00: 00 CONTUSION OF EYEBALL AND ORBITAL TISSUES, RIGHT EYE, SUBS Active 2022-11 00:00: 00 HEMORRHAGE OF RIGHT ORBIT Active 2022-11 00:00: 00 PERSONAL HISTORY OF COVID-19 Active 2022-11 00:00: 00 HISTORY OF FALLING Active 2022-11 00:00: 00 PRSNL HX OF TIA (TIA), 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 Ordering Clinician Indication Dosage Frequency Signature (SIG) Comments Components Aspirin Childrens 81 mg chewable tablet 02-01 00:00: 00 06-27 23:59 :00 No [id number] 1 tablet DAILY 1 tablet DAILY (route: oral) Med Classific ation: Hematolog ical Agents azithromyci n 500 mg tablet 02-01 00:00: 00 06-27 23:59 :00 No [id number] 1 tablet DAILY 1 tablet DAILY (route: oral) Med Classific ation: Anti-Infe ctive Agents Calcium 600 + D(3) 600 mg-5 mcg (200 unit) tablet 02-01 00:00: 00 06-27 23:59 :00 No [id number] 1 tablet DAILY 1 tablet DAILY (route: oral) Med Classific ation: Electroly te Balance-N utritiona l Products carvedilol 6.25 mg tablet 02-01 00:00: 00 06-27 23:59 :00 No [id number] 2 tablet 2 TIMES DAILY 2 tablet 2 TIMES DAILY (route: oral) Med Classific ation: Cardiovas cular Therapy Agents cefdinir 300 mg capsule 02-01 00:00: 00 06-27 23:59 :00 No [id number] 1 capsule DAILY 1 capsule DAILY (route: oral) Med Classific ation: Anti-Infe ctive Agents clopidogrel 75 mg tablet 02-01 00:00: 00 06-27 23:59 :00 No [id number] 1 tablet DAILY 1 tablet DAILY (route: oral) Med Classific ation: Hematolog ical Agents fluticasone 250 mcg-salmete rol 50 mcg/dose blistr powdr for inhalation 02-01 00:00: 00 06-27 23:59 :00 No [id number] 2 inhalat ion EVERY 6 HOURS 2 inhalation EVERY 6 HOURS (route: inhalation ) Med Classific ation: Respirato ry Therapy Agents furosemide 20 mg tablet 02-01 00:00: 00 06-27 23:59 :00 No [id number] 1 tablet DAILY 1 tablet DAILY (route: oral) Med Classific ation: Cardiovas cular Therapy Agents magnesium 400 mg (as magnesium oxide) tablet 02-01 00:00: 00 06-27 23:59 :00 No [id number] 1 tablet 2 TIMES DAILY 1 tablet 2 TIMES DAILY (route: oral) Med Classific ation: Electroly te Balance-N utritiona l Products ProAir HFA 90 mcg/actuati on aerosol inhaler 02-01 00:00: 00 06-27 23:59 :00 No [id number] 2 puff EVERY 6 HOURS 2 puff EVERY 6 HOURS (route: inhalation ) Med Classific ation: Respirato ry Therapy Agents simvastatin 40 mg tablet 02-01 00:00: 00 06-27 23:59 :00 No [id number] 0.5 tablet DAILY 0.5 tablet DAILY (route: oral) Med Classific ation: Cardiovas cular Therapy Agents simvastatin 20 mg tablet 8-14 00:00: 00 11-03 23:59 :00 No [id number] Per instruc tions EVERY DAY Per instructio ns EVERY DAY (route: oral) Med Classific ation: Cardiovas cular Therapy Agents amlodipine 2.5 mg tablet 8-10 00:00: 00 08-01 23:59 :00 No [id number] Per instruc tions DAILY Per instructio ns DAILY (route: oral) Med Classific ation: Cardiovas cular Therapy Agents clopidogrel 75 mg tablet -08 00:00: 00 11-03 23:59 :00 No [id number] Per instruc tions EVERY DAY Per instructio ns EVERY DAY (route: oral) Med Classific ation: Hematolog ical Agents folic acid 1 mg tablet 05-31 00:00: 00 11-03 23:59 :00 No [id number] Per instruc tions EVERY DAY Per instructio ns EVERY DAY (route: oral) Med Classific ation: Electroly te Balance-N utritiona l Products methotrexat e sodium 2.5 mg tablet 05-31 00:00: 00 11-03 23:59 :00 No [id number] Per instruc tions EVERY WEEK Per instructio ns EVERY WEEK (route: oral) Med Classific ation: Antineopl astics Advair Diskus 500 mcg-50 mcg/dose powder for inhalation 07-02 00:00: 00 11-03 23:59 :00 No [id number] 1 inhalat ion DAILY 1 inhalation DAILY (route: inhalation ) Med Classific ation: Respirato ry Therapy Agents Fredrick Low Dose Aspirin 81 mg tablet,eda yed release 07-02 00:00: 00 11-03 23:59 :00 No [id number] 1 tablet DAILY 1 tablet DAILY (route: oral) Med Classific ation: Hematolog ical Agents carvedilol 6.25 mg tablet 07-02 00:00: 00 11-03 23:59 :00 No [id number] 1 tablet 2 TIMES DAILY 1 tablet 2 TIMES DAILY (route: oral) Med Classific ation: Cardiovas cular Therapy Agents Fish Oil 1,200 mg (144 mg-216 mg) capsule 07-02 00:00: 00 11-03 23:59 :00 No [id number] 1 capsule DAILY 1 capsule DAILY (route: oral) Med Classific ation: Cardiovas cular Therapy Agents furosemide 20 mg tablet 07-02 00:00: 00 11-03 23:59 :00 No [id number] 1 tablet DAILY 1 tablet DAILY (route: oral) Med Classific ation: Cardiovas cular Therapy Agents Vitamin C 500 mg tablet 07-02 00:00: 00 11-03 23:59 :00 No [id number] 1 tablet DAILY 1 tablet DAILY (route: oral) Med Classific ation: Electroly te Balance-N utritiona l Products Vital Signs Vital Name Observation Time Observation Value Commen ts Temperature 2023-09-04 08:30:00.000 97.6 [degF] Temperature 2023-09-02 08:35:00.000 97.6 [degF] Temperature 2023-08-28 08:38:00.000 97.6 [degF] Temperature 2023-08-26 08:47:00.000 97.7 [degF] Temperature 2023-08-21 08:33:00.000 97.6 [degF] Temperature 2023-08-19 08:31:00.000 97.6 [degF] Temperature 2023-08-14 10:28:00.000 97.2 [degF] BMI (%) 2023-08-14 10:28:00.000 25 kg/m2 Height 2023-08-14 10:28:00.000 63 [in_us] Pulse 2023-09-04 08:30:00.000 74 /min Pulse 2023-09-02 08:35:00.000 72 /min Pulse 2023-08-28 08:38:00.000 68 /min Pulse 2023-08-26 08:47:00.000 68 /min Pulse 2023-08-21 08:33:00.000 70 /min Pulse 2023-08-19 08:31:00.000 68 /min Pulse 2023-08-14 10:28:00.000 68 /min O2 Saturation (%) 2023-08-14 10:28:00.000 96 % Respirations 2023-09-04 08:30:00.000 18 /min Respirations 2023-09-02 08:35:00.000 18 /min Respirations 2023-08-28 08:38:00.000 18 /min Respirations 2023-08-26 08:47:00.000 18 /min Respirations 2023-08-21 08:33:00.000 19 /min Respirations 2023-08-19 08:31:00.000 18 /min Respirations 2023-08-14 10:28:00.000 18 /min Weight (lbs) 2023-08-14 10:28:00.000 146 [lb_av] Systolic Blood Pressure 2023-09-04 08:30:00.000 124 mm [Hg] Systolic Blood Pressure 2023-09-02 08:35:00.000 118 mm [Hg] Systolic Blood Pressure 2023-08-28 08:38:00.000 112 mm [Hg] Systolic Blood Pressure 2023-08-26 08:47:00.000 110 mm [Hg] Systolic Blood Pressure 2023-08-21 08:33:00.000 120 mm [Hg] Systolic Blood Pressure 2023-08-19 08:31:00.000 110 mm [Hg] Systolic Blood Pressure 2023-08-14 10:28:00.000 109 mm [Hg] Diastolic Blood Pressure 2023-09-04 08:30:00.000 64 mm [Hg] Diastolic Blood Pressure 2023-09-02 08:35:00.000 68 mm [Hg] Diastolic Blood Pressure 2023-08-28 08:38:00.000 64 mm [Hg] Diastolic Blood Pressure 2023-08-26 08:47:00.000 64 mm [Hg] Diastolic Blood Pressure 2023-08-21 08:33:00.000 78 mm [Hg] Diastolic Blood Pressure 2023-08-19 08:31:00.000 68 mm [Hg] Diastolic Blood Pressure 2023-08-14 10:28:00.000 60 mm [Hg] Plan of Treatment Planned Activity Planned Date Details Comments Future Scheduled Test PHYSICAL T HERAPIST TO EVALUATE PATIENT SECONDARY TO FUNCTIONAL DEFICITS/SAFETY CONCERNS. [code = PHYSICAL THERAPIST TO EVALUATE PATIENT SECONDARY TO FUNCTIONAL DEFICITS/SAFETY CONCERNS.] Future Scheduled Test PHYSICAL T HERAPIST TO ASSESS BEST PRACTICE INTERVENTIONS TO ASSIST PATIENTS TO IMPROVE OR STABILIZE MEDICAL STATUS AND PREVENT RE-HOSPITALIZATION. MEASURES INCLUDING REVIEW AND IDENTIFICATION OF CONCERNS FOR THE FOLLOWING AREAS: DEPRESSION, DRUG REGIMEN, ENVIRONMENTAL SAFETY ISSUES AND FALLS, PRESSURE ULCERS, PAIN, AND DISEASE MANAGEMENT. [code = PHYSICAL THERAPIST TO ASSESS BEST PRACTICE INTERVENTIONS TO ASSIST PATIENTS TO IMPROVE OR STABILIZE MEDICAL STATUS AND PREVENT RE-HOSPITALIZATION. MEASURES INCLUDING REVIEW AND IDENTIFICATION OF CONCERNS FOR THE FOLLOWING AREAS: DEPRESSION, DRUG REGIMEN, ENVIRONMENTAL SAFETY ISSUES AND FALLS, PRESSURE ULCERS, PAIN, AND DISEASE MANAGEMENT.] Future Scheduled Test PHYSICAL T HERAPY TO INSTRUCT PATIENT/CAREGIVER ON SAFE TRANSFER TECHNIQUES USING PROPER BODY MECHANICS AND EQUIPMENT. [code = PHYSICAL THERAPY TO INSTRUCT PATIENT/CAREGIVER ON SAFE TRANSFER TECHNIQUES USING PROPER BODY MECHANICS AND EQUIPMENT.] Future Scheduled Test PHYSICAL T HERAPY TO INSTRUCT PATIENT/CAREGIVER ON GAIT TRAINING TECHNIQUES USING APPROPRIATE ASSISTIVE DEVICE, PROPER BODY MECHANICS TO IMPROVE MOBILITY, AND PREVENT INJURY OF PATIENT AND/OR CAREGIVER. [code = PHYSICAL THERAPY TO INSTRUCT PATIENT/CAREGIVER ON GAIT TRAINING TECHNIQUES USING APPROPRIATE ASSISTIVE DEVICE, PROPER BODY MECHANICS TO IMPROVE MOBILITY, AND PREVENT INJURY OF PATIENT AND/OR CAREGIVER.] Future Scheduled Test PHYSICAL T HERAPY TO ASSESS AND RECOMMEND HOME SAFETY ADAPTATIONS AND EDUCATE PATIENT /CAREGIVER ON FALL PREVENTION STRATEGIES. [code = PHYSICAL THERAPY TO ASSESS AND RECOMMEND HOME SAFETY ADAPTATIONS AND EDUCATE PATIENT /CAREGIVER ON FALL PREVENTION STRATEGIES.] Future Scheduled Test SUMMARY OF THERAPY EVAL/ASSESSMENT FINDINGS AND REASON(S) SKILLS OF A THERAPIST ARE INDICATED: 803158 PHYSICAL THERAPY AND AGENCY START OF CARE COMPLETED PATIENT IS A 87 YEAR OLD FEMALE. WITH RECENT HOSPITALIZATION SECONDARY TO A FALL AT HOME, RESULTING IN RIGHT INTRAORBITAL. HEMATOMA WITH ECHYMOSIS. PMHX MUSCLE DISORDER, ARTHRITIS, MULTIPLE FALLS, BLE EDEMA, HTN,OA,COPD,TIA,DEHYDRATION. PATIENT LIVES WITH SPOUSE IN SINGLE WIDE TRAILER WITH STAIRS TO ENTER WITH RAILINGS AVAILABLE. VITAL SIGNS ARE STABLE, PAIN IS REPORTED 3/10 IN SHOULDERS, BACK, KNEES AND L HAND WITH BRUISING OF R FACE,SHOULDERS, KNEES AND BACK.. BLE STRENGTH 3+/5 GROSSLY, BED MOBILITY IS INDEPENDENT. TRANSFERS WITH RW CTG A, GAIT WITH RW CTG A ON EVEN SURFACES X 20FT WITH SLOW SHUFFLING GAIT, FORWARD FLEXED POSTURE. MOD A UP-AND-DOWN STEPS TO EXIT HOME. DYNAMIC STAND BALANCE TUG SCORE 18 SECONDS INDICATING A FALL RISK. PATIENT IS HOMEBOUND AND REQUIRES PHYSICAL ASSIST AND DEVICE TO LEAVE HOME FOR MEDICAL APPOINTMENTS. PATIENT GOAL TO IMPROVE GAIT AND BALANCE. PATIENT AGREEABLE TO PHYSICAL THERAPY INTERVENTION 1W1, 2W4. [code = SUMMARY OF THERAPY EVAL/ASSESSMENT FINDINGS AND REASON(S) SKILLS OF A THERAPIST ARE INDICATED: [id number] PHYSICAL THERAPY AND AGENCY START OF CARE COMPLETED PATIENT IS A 87 YEAR OLD FEMALE. WITH RECENT HOSPITALIZATION SECONDARY TO A FALL AT HOME, RESULTING IN RIGHT INTRAORBITAL. HEMATOMA WITH ECHYMOSIS. PMHX MUSCLE DISORDER, ARTHRITIS, MULTIPLE FALLS, BLE EDEMA, HTN,OA,COPD,TIA,DEHYDRATION. PATIENT LIVES WITH SPOUSE IN SINGLE WIDE TRAILER WITH STAIRS TO ENTER WITH RAILINGS AVAILABLE. VITAL SIGNS ARE STABLE, PAIN IS REPORTED 3/10 IN SHOULDERS, BACK, KNEES AND L HAND WITH BRUISING OF R FACE,SHOULDERS, KNEES AND BACK.. BLE STRENGTH 3+/5 GROSSLY, BED MOBILITY IS INDEPENDENT. TRANSFERS WITH RW CTG A, GAIT WITH RW CTG A ON EVEN SURFACES X 20FT WITH SLOW SHUFFLING GAIT, FORWARD FLEXED POSTURE. MOD A UP-AND-DOWN STEPS TO EXIT HOME. DYNAMIC STAND BALANCE TUG SCORE 18 SECONDS INDICATING A FALL RISK. PATIENT IS HOMEBOUND AND REQUIRES PHYSICAL ASSIST AND DEVICE TO LEAVE HOME FOR MEDICAL APPOINTMENTS. PATIENT GOAL TO IMPROVE GAIT AND BALANCE. PATIENT AGREEABLE TO PHYSICAL THERAPY INTERVENTION 1W1, 2W4. ] Goal 2023-09-04 Patient Goal - R ESUME INDEPENDENT AMBULATION Goal Provider Goal - PHYSICAL THERAPY EVALUATION TO BE COMPLETED WITH RECOMMENDATIONS AND/OR WRITTEN TREATMENT PLAN OF CARE ESTABLISHED FOR THE PHYSICIANS SIGNATURE Goal Provider Goal - PATIENT/CAREGIVER VERBALIZES UNDERSTANDING OF THE INITIAL BEST PRACTICE RECOMMENDATIONS. PHYSICIAN TO BE NOTIFIED APPROPRIATE FOR ANY CHANGES OR COMPLICATIONS THROUGHOUT THE CERTIFICATION PERIOD. Goal Provider Goal - PATIENT/CAREGIVER WILL DEMONSTRATE SAFE TRANSFERS USING APPROPRIATE ASSISTIVE DEVICE BODY MECHANICS AND EQUIPMENT TO IMPROVE FUNCTION OF TRANSFERS AND GAIT BY [id number] Goal Provider Goal - PATIENT/CAREGIVER WILL DEMONSTRATE IMPROVED GAIT TECHNIQUES TO MINIMIZE RISK OF INJURY AND INCREASE FUNCTION OF AMBULATION BY [id number] Goal Provider Goal - PATIENT/CAREGIVER WILL DEMONSTRATE/VERBALIZE UNDERSTANDING OF RECOMMENDATIONS TO INCREASE SAFETY IN THE HOME AND FALL PREVENTION TO IMPROVE FUNCTION OF TRANSFERS AND GAIT BY [id number] Goal Provider Goal - Reason for Visit INDEPENDENT WITH USE OF ASSISTIVE DEVICE Encounters Start Date/Time End Date/Time Encounter Type Admission Type Attending [facility] Care Department Encounter ID Discharge Date Discharge Status Discharge Condition Discharge Reason Percent Goals Met 2023-08-14 00:00:00 2023-09-04 00:00:00 Outpatient [facility] [id number] 2023-09-04 00:00:00 DISCHARGE TO HOME OR SELF CARE INDEPENDEN T WITH USE OF ASSISTIVE DEVICE GOALS MET ( ONLY) 100.00
--- OUTSIDE RECORDS SUMMARY | 2024-10-13 14:49 | XMS_ITS ---
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 Generated for Printi ng/Krystal/eTransmitting on:?10/13/2024 02:48 PM EST
== END 2024-10-06 14:52 | disposition home or self-care (01) ==
PROVIDERS: PCP Internal Medicine; Visit Provider Student in an Organized Health Care Education/Training Program
DX: M06.09 Rheumatoid arthritis without rheumatoid factor, multiple sites (principal); Z79.631 Long term (current) use of antimetabolite agent; Z13.820 Encounter for screening for osteoporosis
CPT/HCPCS: 99214; G2211

== ENCOUNTER → 2024-10-06 14:02 | Outpatient (BNVA) | payer MEDICARE, OTHER, SELFPAY | PROVIDERS: PCP Internal Medicine; Visit Provider Student in an Organized Health Care Education/Training Program | DX: M06.09 Rheumatoid arthritis without rheumatoid factor, multiple sites (principal); M15.9 Polyosteoarthritis, unspecified; Z79.631 Long term (current) use of antimetabolite agent | CPT/HCPCS: 99212 ==